=== PATIENT | male | born 1940 | race Two or more races ===

== ENCOUNTER 2016-02-22 13:31 | Inpatient (IN) | payer OTHER, MEDICARE ==
[2016-02-22] VITALS (7 sets, daily range): BP systolic 120–122; BP diastolic 58–62; PULSE 75–83; RESP 19–20; TEMP 97.5–97.8; O2SAT 97–98
[~2016-02-22] VITALS: Ht 167.6 cm; Wt 72.3 kg
[~2016-02-22 13:31] MED LIST: ASPI81 PO; FISH1000 PO; GLUC500C56 PO; TAB-TAB PO; VITA400C28 PO; ZINC220 PO
[2016-02-22 13:55] LABS: AUTOMATED NEUTROPHIL # 6.6 TH/MM3 (1.8-7.7); BASOPHIL % 0.3 % (0.0-2.0); EOSINOPHIL # 0.1 TH/MM3 (0-0.4); EOSINOPHIL % 1.3 % (0.0-4.0); HEMATOCRIT 27.4 % (39.0-51.0); HEMO FLAGS DIFF FINAL; LYMPH % 17.2 % (9.0-44.0); LYMPHOCYTE # 1.5 TH/MM3 (1.0-4.8); MEAN CELL VOLUME 93.4 FL (80.0-100.0); MEAN CORPUSCULAR HEMOGLOBIN 32.6 PG (27.0-34.0); MEAN CORPUSCULAR HGB CONC 34.8 % (32.0-36.0); MONO % 7.3 % (0.0-8.0); NEUT % 73.9 % (16.0-70.0); PLATELET COUNT 228 TH/MM3 (150-450); RED BLOOD COUNT 2.93 MIL/MM3 (4.50-5.90); RED CELL DISTRIBUTION WIDTH 14.4 % (11.6-17.2)
[2016-02-22 13:56] LABS: I-STAT POTASSIUM 3.5 MMOL/L (3.5-4.9)
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
[2016-02-22 14:05] LABS: APTT (PATIENT) 28.4 SEC (24.3-30.1); INTERNATIONAL NORMALIZED RATIO 1.1 RATIO; PROTHROMBIN TIME - PATIENT 12.1 SEC (9.8-11.6)
[2016-02-22] MEDS ORDERED: IOHEXOL 350 MG/ML 10 ML VIAL (for RAD DIAG) IV ONE (14:11)
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
[2016-02-22 14:28] LABS: CKMB 6.1 NG/ML (0.5-3.6)
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
[2016-02-22] MEDS ORDERED: CHLORHEXIDINE GLUCONATE 2 % 1 PACK (2 CLOTHS) TOP PRN (14:30)
[2016-02-22] MEDS ORDERED: SODIUM CHLORIDE 0.9% FLUSH 5 ML FLUSH IV FLUSH PRN (14:30)
[2016-02-22] MEDS ORDERED: HYDROmorphone HCL PF 1 MG/ML VIAL IV PUSH PRN (14:30)
[2016-02-22] MEDS ORDERED: MISCELLANEOUS NURSING INFORMATION XX SCH (14:30)
[2016-02-22] MEDS ORDERED: ACETAMINOPHEN 325 MG TAB PO PRN (14:30)
[2016-02-22] MEDS ORDERED: ONDANSETRON HCL 4 MG/2 ML VIAL IV PRN (14:30)
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
[2016-02-22] MEDS ORDERED: SODIUM CHLOR 0.9% 1000 ML INJ 1,000 ML IV SCH (15:00)
[2016-02-22] MEDS: DOCUSATE SODIUM 100 MG CAP PO SCH ×3 (15:00→21:10)
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
[2016-02-22] MEDS ORDERED: PILL SPLITTER OTHER PRN (15:15)
[2016-02-22] MEDS: RESP: ALBUTEROL 2.5 MG/3 ML NEB (SCH) INH ×2 (15:45→20:23)
[2016-02-22] MEDS: HYDROmorphone HCL PF 1 MG/ML VIAL IV PUSH PRN ×2 (16:10→21:11)
[2016-02-22] MEDS: SODIUM CHLORIDE 0.9% FLUSH 5 ML FLUSH IV FLUSH SCH ×2 (16:18→21:11)
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
[2016-02-22] MEDS: LIDOCAINE HCL 5% PATCH TD SCH (17:10)
[2016-02-22] MEDS: CYCLOBENZAPRINE HCL 10 MG TAB PO SCH ×2 (21:11→21:27)
[2016-02-22 21:54] LABS: BACTERIA, URINE MANY /hpf; BLOOD, URINE MOD (NEG); COMMENT (UR) CULTURE INDICATED; CULTURE IF INDICATED CULTURE INDICATED; GLUCOSE,URINE NEG (NEG); KETONE, URINE NEG (NEG); NITRITE,URINE NEG (NEG); PH, URINE 6.5 (5.0-8.5); URINE COLOR YELLOW (YELLW/STRAW)
[2016-02-23] VITALS (15 sets, daily range): BP systolic 110–131; BP diastolic 53–89; PULSE 76–96; RESP 17–24; TEMP 97.5–99.1; O2SAT 92–99
[2016-02-23 02:17] LABS: AUTOMATED NEUTROPHIL # 8.2 TH/MM3 (1.8-7.7); BASOPHIL % 0.1 % (0.0-2.0); EOSINOPHIL % 0.2 % (0.0-4.0); HEMATOCRIT 28.3 % (39.0-51.0); HEMO FLAGS DIFF FINAL; LYMPH % 8.6 % (9.0-44.0); LYMPHOCYTE # 0.8 TH/MM3 (1.0-4.8); MEAN CELL VOLUME 92.5 FL (80.0-100.0); MEAN CORPUSCULAR HEMOGLOBIN 31.6 PG (27.0-34.0); MEAN CORPUSCULAR HGB CONC 34.2 % (32.0-36.0); MONO % 6.6 % (0.0-8.0); NEUT % 84.5 % (16.0-70.0); PLATELET COUNT 198 TH/MM3 (150-450); RED BLOOD COUNT 3.07 MIL/MM3 (4.50-5.90); RED CELL DISTRIBUTION WIDTH 14.7 % (11.6-17.2); WHITE BLOOD COUNT 9.7 TH/MM3 (4.0-11.0)
[2016-02-23 02:27] LABS: ALT (GPT) 20 U/L (12-78); ANION GAP 12 MEQ/L (5-15); AST (GOT) 47 U/L (15-37); BICARBONATE 25.9 MEQ/L (21.0-32.0); BLOOD UREA NITROGEN 59 MG/DL (7-18); CHLORIDE 99 MEQ/L (98-107); GLOMERULAR FILTRATION RATE 7 ML/MIN (>89); MAGNESIUM 1.7 MG/DL (1.5-2.5); POTASSIUM 3.2 MEQ/L (3.5-5.1); SODIUM (NA) 137 MEQ/L (136-145)
[2016-02-23 02:31] LABS: ALKALINE PHOSPHATASE 54 U/L (45-117); TOTAL BILIRUBIN ADULT 0.2 MG/DL (0.2-1.0)
[2016-02-23] MEDS: RESP: ALBUTEROL 2.5 MG/3 ML NEB (SCH) INH ×4 (03:40→20:26)
[2016-02-23] MEDS: CHLORHEXIDINE GLUCONATE 2 % 1 PACK (2 CLOTHS) TOP SCH (04:00)
[2016-02-23] MEDS: REMOVE OLD PATCH T-DERMAL SCH (04:00)
--- NOTE | 2016-02-23 05:55 | RADRPT ---
EXAM DATE/TIME: 02/23/2016 05:11 [facility] COMPARISON: CHEST SINGLE AP, February 22, 2016, 13:25. INDICATIONS : Evaluate for pulmonary disease. MEDICAL HISTORY : None. SURGICAL HISTORY : None. ENCOUNTER: Subsequent ACUITY: 2 days PAIN SCORE: Non-responsive. LOCATION: Bilateral chest FINDINGS: A single view of the chest demonstrates minimal bibasilar densities without evidence of mass, infiltr ate or effusion. Previous median sternotomy. The cardiomediastinal contours are unremarkable. Osseou s structures are intact. CONCLUSION: Minimal bibasilar densities. Status post CABG. Harjeet Oleary MD on February 23, 2016 at 5:53 Board Certified Radiologist. This report was verified electronically.
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
[2016-02-23] MEDS: CYCLOBENZAPRINE HCL 10 MG TAB PO SCH ×3 (09:03→21:42)
[2016-02-23] MEDS: DOCUSATE SODIUM 100 MG CAP PO SCH ×2 (09:03→20:46)
[2016-02-23] MEDS: SODIUM CHLORIDE 0.9% FLUSH 5 ML FLUSH IV FLUSH SCH ×2 (09:04→20:46)
--- NOTE | 2016-02-23 09:37 | RADRPT ---
EXAM DATE/TIME: 02/23/2016 09:00 [facility] COMPARISON: Non- INDICATIONS : Left knee pain. MEDICAL HISTORY : rib and clavicle fractures SURGICAL HISTORY : Total knee replacement, left. ENCOUNTER: Subsequent ACUITY: 2 days PAIN SCORE: 4/10 LOCATION: Left knee FINDINGS: Two view examination of the left knee demonstrates no evidence of fracture or dislocation. There is a total left knee prosthesis present with no complicating features. Bony mineralization is normal. T he suprapatellar soft tissues have a normal configuration. Surgical clips identified within the poste rior aspect of the knee. CONCLUSION: No acute disease. Teresita Cruz MD on February 23, 2016 at 9:35 Board Certified Radiologist. This report was verified electronically.
--- NOTE | 2016-02-23 10:25 | EKG ---
Date Performed: 02/22/2016 Time Performed: 14:14:04 PTAGE: 75 years EKG: Sinus rhythm RIGHT BUNDLE BRANCH BLOCK LEFT ANTERIOR FASCICULAR BLOCK ABNORMAL ECG INTERPRETATION BASED ON A DEFA ULT AGE OF 40 YEARS NO PREVIOUS TRACING DOCTOR: Edouard Lizarraga Interpretating Date/Time 02/23/2016 10:23:37
[2016-02-23] MEDS: HYDROmorphone HCL PF 1 MG/ML VIAL IV PUSH PRN ×2 (11:23→21:42)
[2016-02-23] MEDS ORDERED: SODIUM CHLORIDE 0.9% FLUSH 5 ML FLUSH IVF PRN (15:15)
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
[2016-02-23] MEDS: POTASSIUM CHLORIDE 20 MEQ CONTROLLED RELEASE TAB PO SCH ×2 (16:35→20:46)
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
[2016-02-23] MEDS: LIDOCAINE HCL 5% PATCH TD SCH (17:08)
[2016-02-23] MEDS: MAGNESIUM HYDROXIDE SUSP 30 ML CUP PO SCH (20:45)
[2016-02-23] MEDS: FAMOTIDINE 20 MG TAB PO SCH (20:46)
[2016-02-24] VITALS (11 sets, daily range): BP systolic 94–117; BP diastolic 55–62; PULSE 82–98; RESP 17–21; TEMP 98.1–98.6; O2SAT 93–97
[2016-02-24] MEDS: REMOVE OLD PATCH T-DERMAL SCH (03:56)
[2016-02-24] MEDS: RESP: ALBUTEROL 2.5 MG/3 ML NEB (SCH) INH ×4 (03:58→20:42)
[2016-02-24 04:38] LABS: AUTOMATED NEUTROPHIL # 8.5 TH/MM3 (1.8-7.7); BASOPHIL % 0.2 % (0.0-2.0); EOSINOPHIL % 0.5 % (0.0-4.0); HEMATOCRIT 30.4 % (39.0-51.0); HEMO FLAGS DIFF FINAL; LYMPH % 6.5 % (9.0-44.0); LYMPHOCYTE # 0.6 TH/MM3 (1.0-4.8); MEAN CELL VOLUME 92.7 FL (80.0-100.0); MEAN CORPUSCULAR HEMOGLOBIN 31.6 PG (27.0-34.0); MEAN CORPUSCULAR HGB CONC 34.1 % (32.0-36.0); MONO % 6.7 % (0.0-8.0); NEUT % 86.1 % (16.0-70.0); PLATELET COUNT 218 TH/MM3 (150-450); RED BLOOD COUNT 3.27 MIL/MM3 (4.50-5.90); RED CELL DISTRIBUTION WIDTH 15.1 % (11.6-17.2); WHITE BLOOD COUNT 9.9 TH/MM3 (4.0-11.0)
[2016-02-24] MEDS: CHLORHEXIDINE GLUCONATE 2 % 1 PACK (2 CLOTHS) TOP SCH (05:00)
[2016-02-24 05:17] LABS: ALKALINE PHOSPHATASE 62 U/L (45-117); ALT (GPT) 20 U/L (12-78); ANION GAP 14 MEQ/L (5-15); AST (GOT) 39 U/L (15-37); BICARBONATE 25.2 MEQ/L (21.0-32.0); BLOOD UREA NITROGEN 56 MG/DL (7-18); CHLORIDE 98 MEQ/L (98-107); GLOMERULAR FILTRATION RATE 7 ML/MIN (>89); MAGNESIUM 1.7 MG/DL (1.5-2.5); POTASSIUM 3.1 MEQ/L (3.5-5.1); SODIUM (NA) 137 MEQ/L (136-145); TOTAL BILIRUBIN ADULT 0.3 MG/DL (0.2-1.0)
--- NOTE | 2016-02-24 06:29 | RADRPT ---
EXAM DATE/TIME: 02/24/2016 05:55 [facility] COMPARISON: CHEST SINGLE AP, February 23, 2016, 5:11. INDICATIONS : Evaluate after respiratory failure. MEDICAL HISTORY : None. SURGICAL HISTORY : None. ENCOUNTER: Subsequent ACUITY: 3 days PAIN SCORE: Non-responsive. LOCATION: Bilateral chest FINDINGS: The cardiac silhouette is normal in transverse diameter. Median sternotomy wires are present. There i s left lower lobe atelectasis versus pneumonia. This is new when compared with the prior exam. No ple ural effusions are identified. CONCLUSION: 1. Cardiomegaly 2. Left lower lobe atelectasis versus pneumonia. This is new when compared with the prior exam. Austin Minor MD on February 24, 2016 at 6:27 Board Certified Radiologist. This report was verified electronically.
[2016-02-24] MEDS: CYCLOBENZAPRINE HCL 10 MG TAB PO SCH ×3 (06:48→21:56)
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
[2016-02-24] MEDS ORDERED: NORC5TAB PO (07:34)
[2016-02-24] MEDS: DOCUSATE SODIUM 100 MG CAP PO SCH ×2 (09:00→21:55)
[2016-02-24] MEDS: POTASSIUM CHLORIDE 20 MEQ CONTROLLED RELEASE TAB PO SCH ×2 (09:00→21:55)
[2016-02-24] MEDS: SODIUM CHLORIDE 0.9% FLUSH 5 ML FLUSH IV FLUSH SCH ×2 (09:22→22:01)
[2016-02-24] MEDS: HYDROmorphone HCL PF 1 MG/ML VIAL IV PUSH PRN ×3 (10:38→21:57)
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
[2016-02-24] MEDS ORDERED: GLUCAGON 1 MG/ML VIAL OTHER PRN (13:00)
[2016-02-24] MEDS ORDERED: POTASSIUM CHLOR 20 MEQ PREMIX 100 ML IV ONE (13:00)
[2016-02-24] MEDS ORDERED: DEXTROSE 50% IN WATER 50 ML VIAL(D50) IV PUSH PRN (13:00)
[2016-02-24] MEDS: LIDOCAINE HCL 5% PATCH TD SCH (16:00)
[2016-02-24] MEDS: INSULIN NovoLIN REGULAR SUPPLEMENTAL SCALE SQ SCH ×2 (16:00→21:56)
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
[2016-02-24] MEDS: MAGNESIUM HYDROXIDE SUSP 30 ML CUP PO SCH (21:55)
[2016-02-24] MEDS: FAMOTIDINE 20 MG TAB PO SCH (21:55)
[2016-02-24] MEDS: HEPARIN SODIUM - SQ 10,000 UNITS/ML VIAL SQ SCH (21:56)
[2016-02-25] VITALS (8 sets, daily range): BP systolic 91–124; BP diastolic 53–66; PULSE 64–102; RESP 16–20; TEMP 96.8–98.1; O2SAT 91–97
[2016-02-25] MEDS: REMOVE OLD PATCH T-DERMAL SCH (04:00)
[2016-02-25] MEDS: CHLORHEXIDINE GLUCONATE 2 % 1 PACK (2 CLOTHS) TOP SCH ×2 (04:00→20:54)
[2016-02-25] MEDS: HEPARIN SODIUM - SQ 10,000 UNITS/ML VIAL SQ SCH ×3 (06:28→20:54)
[2016-02-25] MEDS: CYCLOBENZAPRINE HCL 10 MG TAB PO SCH ×3 (06:28→20:53)
[2016-02-25] MEDS: INSULIN NovoLIN REGULAR SUPPLEMENTAL SCALE SQ SCH ×4 (06:28→20:53)
[2016-02-25] MEDS: HYDROmorphone HCL PF 1 MG/ML VIAL IV PUSH PRN ×2 (07:58→10:48)
[2016-02-25] MEDS: POTASSIUM CHLORIDE 20 MEQ CONTROLLED RELEASE TAB PO SCH ×2 (07:59→20:53)
[2016-02-25] MEDS: SODIUM CHLORIDE 0.9% FLUSH 5 ML FLUSH IV FLUSH SCH ×2 (07:59→20:54)
[2016-02-25] MEDS: DOCUSATE SODIUM 100 MG CAP PO SCH ×2 (07:59→20:53)
[2016-02-25 08:00] LABS: AUTOMATED NEUTROPHIL # 7.9 TH/MM3 (1.8-7.7); BASOPHIL % 0.4 % (0.0-2.0); EOSINOPHIL # 0.2 TH/MM3 (0-0.4); EOSINOPHIL % 1.8 % (0.0-4.0); HEMATOCRIT 30.3 % (39.0-51.0); HEMO FLAGS DIFF FINAL; LYMPH % 8.1 % (9.0-44.0); LYMPHOCYTE # 0.8 TH/MM3 (1.0-4.8); MEAN CELL VOLUME 93.4 FL (80.0-100.0); MEAN CORPUSCULAR HEMOGLOBIN 32.2 PG (27.0-34.0); MEAN CORPUSCULAR HGB CONC 34.5 % (32.0-36.0); MONO % 7.9 % (0.0-8.0); NEUT % 81.8 % (16.0-70.0); PLATELET COUNT 236 TH/MM3 (150-450); RED BLOOD COUNT 3.24 MIL/MM3 (4.50-5.90); RED CELL DISTRIBUTION WIDTH 15.3 % (11.6-17.2); WHITE BLOOD COUNT 9.6 TH/MM3 (4.0-11.0)
[2016-02-25 08:28] LABS: BICARBONATE 28.3 MEQ/L (21.0-32.0); POTASSIUM 3.7 MEQ/L (3.5-5.1)
[2016-02-25] MEDS ORDERED: LACTULOSE SYRUP 20 GM/30 ML CUP PO ONE (09:00)
[2016-02-25] MEDS: RESP: ALBUTEROL 2.5 MG/3 ML NEB (SCH) INH ×3 (09:07→21:16)
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
--- NOTE | 2016-02-25 11:00 | RADRPT ---
EXAM DATE/TIME: 02/25/2016 10:36 [facility] COMPARISON: No previous studies available for comparison. INDICATIONS : Left hand pain and swelling. MEDICAL HISTORY : Arthritis. SURGICAL HISTORY : None. ENCOUNTER: Initial ACUITY: 1 day PAIN SCORE: 8/10 LOCATION: Left Hand. FINDINGS: Four view examination of the left hand demonstrates there is marked osteoarthritis of the radiocarpal column. There is subluxation and arthritic change of the 2nd PIP joint. The middle phalangeal bone is subluxed ulnarly. No acute fracture is identified. CONCLUSION: Scattered areas of osteoarthritis. No acute fracture. Leon Conklin MD on February 25, 2016 at 10:53 Board Certified Radiologist. This report was verified electronically.
[2016-02-25] MEDS: TAMSULOSIN HCL 0.4 MG CAP PO SCH (12:22)
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
[2016-02-25] MEDS: LIDOCAINE HCL 5% PATCH TD SCH (16:26)
[2016-02-25] MEDS: MAGNESIUM HYDROXIDE SUSP 30 ML CUP PO SCH (20:53)
[2016-02-25] MEDS: FAMOTIDINE 20 MG TAB PO SCH (20:53)
[2016-02-26] VITALS (9 sets, daily range): BP systolic 90–110; BP diastolic 50–67; PULSE 81–103; RESP 19–21; TEMP 96.8–98.7; O2SAT 90–98
[2016-02-26] MEDS: REMOVE OLD PATCH T-DERMAL SCH (04:00)
[2016-02-26] MEDS: HEPARIN SODIUM - SQ 10,000 UNITS/ML VIAL SQ SCH ×3 (04:36→19:42)
[2016-02-26] MEDS: RESP: ALBUTEROL 2.5 MG/3 ML NEB (SCH) INH ×3 (04:58→15:19)
[2016-02-26] MEDS: CYCLOBENZAPRINE HCL 10 MG TAB PO SCH ×3 (05:41→19:42)
[2016-02-26] MEDS: INSULIN NovoLIN REGULAR SUPPLEMENTAL SCALE SQ SCH ×4 (05:41→19:43)
[2016-02-26] MEDS: TAMSULOSIN HCL 0.4 MG CAP PO SCH (08:52)
[2016-02-26] MEDS: DOCUSATE SODIUM 100 MG CAP PO SCH ×2 (08:52→19:42)
[2016-02-26] MEDS: SODIUM CHLORIDE 0.9% FLUSH 5 ML FLUSH IV FLUSH SCH ×2 (08:52→19:43)
[2016-02-26] MEDS: POTASSIUM CHLORIDE 20 MEQ CONTROLLED RELEASE TAB PO SCH ×2 (08:52→19:42)
[2016-02-26] MEDS: oxyCODONE/ACETAMINOPHEN 5 MG/325 MG TAB PO PRN ×3 (09:14→16:37)
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
[2016-02-26] MEDS: LIDOCAINE HCL 5% PATCH TD SCH (15:37)
[2016-02-26] MEDS: FAMOTIDINE 20 MG TAB PO SCH (19:42)
[2016-02-26] MEDS: MAGNESIUM HYDROXIDE SUSP 30 ML CUP PO SCH (19:43)
[2016-02-26] MEDS: CHLORHEXIDINE GLUCONATE 2 % 1 PACK (2 CLOTHS) TOP SCH (19:43)
[2016-02-27] VITALS (9 sets, daily range): BP systolic 102–138; BP diastolic 59–75; PULSE 92–110; RESP 16–22; TEMP 96.6–98.7; O2SAT 90–99
[2016-02-27] MEDS: REMOVE OLD PATCH T-DERMAL SCH (03:26)
[2016-02-27] MEDS: CYCLOBENZAPRINE HCL 10 MG TAB PO SCH ×3 (04:59→19:33)
[2016-02-27] MEDS: HEPARIN SODIUM - SQ 10,000 UNITS/ML VIAL SQ SCH ×3 (04:59→19:34)
[2016-02-27] MEDS: INSULIN NovoLIN REGULAR SUPPLEMENTAL SCALE SQ SCH ×4 (04:59→19:33)
[2016-02-27 05:28] LABS: HEMATOCRIT 28.6 % (39.0-51.0); PLATELET COUNT 255 TH/MM3 (150-450); RED BLOOD COUNT 3.04 MIL/MM3 (4.50-5.90); RED CELL DISTRIBUTION WIDTH 15.2 % (11.6-17.2); REVIEW FLAG FINAL; WHITE BLOOD COUNT 10.3 TH/MM3 (4.0-11.0)
[2016-02-27 05:32] LABS: BICARBONATE 27.8 MEQ/L (21.0-32.0); MAGNESIUM 2.3 MG/DL (1.5-2.5); POTASSIUM 4.6 MEQ/L (3.5-5.1)
[2016-02-27] MEDS: POTASSIUM CHLORIDE 20 MEQ CONTROLLED RELEASE TAB PO SCH ×2 (10:07→19:32)
[2016-02-27] MEDS: DOCUSATE SODIUM 100 MG CAP PO SCH ×2 (10:07→19:32)
[2016-02-27] MEDS: SODIUM CHLORIDE 0.9% FLUSH 5 ML FLUSH IV FLUSH SCH ×2 (10:08→19:32)
[2016-02-27] MEDS: TAMSULOSIN HCL 0.4 MG CAP PO SCH (10:08)
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
[2016-02-27] MEDS: oxyCODONE/ACETAMINOPHEN 5 MG/325 MG TAB PO PRN (17:02)
[2016-02-27] MEDS: LIDOCAINE HCL 5% PATCH TD SCH (17:04)
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
[2016-02-27] MEDS: MAGNESIUM HYDROXIDE SUSP 30 ML CUP PO SCH (19:33)
[2016-02-27] MEDS: FAMOTIDINE 20 MG TAB PO SCH (19:33)
[2016-02-27] MEDS: CHLORHEXIDINE GLUCONATE 2 % 1 PACK (2 CLOTHS) TOP SCH (19:33)
[2016-02-28] VITALS: BP 117/60; PULSE 95; RESP 22; TEMP 96.6; O2SAT 95
[2016-02-28] MEDS: REMOVE OLD PATCH T-DERMAL SCH ×2 (02:34→17:13)
[2016-02-28 04:00] VITALS: BP 114/55; PULSE 99; RESP 20; TEMP 98; O2SAT 93
[2016-02-28] MEDS: HEPARIN SODIUM - SQ 10,000 UNITS/ML VIAL SQ SCH ×3 (05:01→21:22)
[2016-02-28] MEDS: CYCLOBENZAPRINE HCL 10 MG TAB PO SCH ×2 (05:02→16:35)
[2016-02-28] MEDS: INSULIN NovoLIN REGULAR SUPPLEMENTAL SCALE SQ SCH ×4 (05:02→21:00)
[2016-02-28 08:00] VITALS: BP 110/58; PULSE 99; RESP 19; TEMP 98.4; O2SAT 95
[2016-02-28] MEDS: SODIUM CHLORIDE 0.9% FLUSH 5 ML FLUSH IV FLUSH SCH ×2 (08:36→21:22)
[2016-02-28] MEDS: DOCUSATE SODIUM 100 MG CAP PO SCH ×2 (08:36→21:21)
[2016-02-28] MEDS: TAMSULOSIN HCL 0.4 MG CAP PO SCH (08:36)
[2016-02-28] MEDS: POTASSIUM CHLORIDE 20 MEQ CONTROLLED RELEASE TAB PO SCH ×2 (08:36→21:21)
[2016-02-28] MEDS ORDERED: TAMS5CAP PO (08:45)
[2016-02-28] MEDS ORDERED: DOCU1CAP39 PO (08:45)
[2016-02-28] MEDS ORDERED: ACET325T PO (08:45)
[2016-02-28] MEDS ORDERED: MILKSUS PO (08:45)
[2016-02-28] MEDS ORDERED: HEPA10003 SQ (08:45)
[2016-02-28] MEDS ORDERED: FAMO20TA2 PO (08:45)
[2016-02-28] MEDS ORDERED: POTA20TA5 PO (08:45)
[2016-02-28] MEDS ORDERED: ONDA4INJ2 IV (08:45)
[2016-02-28] MEDS ORDERED: LIDO5DIS35 TD (08:45)
[2016-02-28] MEDS ORDERED: CYCL1TAB29 PO (08:45)
[2016-02-28] MEDS ORDERED: ASPI1TAB69 PO (09:09)
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
[2016-02-28 12:00] VITALS: BP 113/67; PULSE 89; RESP 18; TEMP 97.9; O2SAT 95
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
[2016-02-28] MEDS: LIDOCAINE HCL 5% PATCH TD SCH (17:13)
[2016-02-28 17:55] VITALS: O2SAT 95
[2016-02-28 20:00] VITALS: BP 123/66; PULSE 108; RESP 24; TEMP 98; O2SAT 95
[2016-02-28] MEDS: MAGNESIUM HYDROXIDE SUSP 30 ML CUP PO SCH (21:21)
[2016-02-28] MEDS: FAMOTIDINE 20 MG TAB PO SCH (21:21)
[2016-02-29] VITALS (9 sets, daily range): BP systolic 86–107; BP diastolic 50–69; PULSE 78–103; RESP 17–24; TEMP 96.6–99.7; O2SAT 93–97
[2016-02-29] MEDS: CYCLOBENZAPRINE HCL 10 MG TAB PO SCH ×3 (00:58→16:16)
[2016-02-29] MEDS: CHLORHEXIDINE GLUCONATE 2 % 1 PACK (2 CLOTHS) TOP SCH (04:00)
[2016-02-29] MEDS: HEPARIN SODIUM - SQ 10,000 UNITS/ML VIAL SQ SCH ×2 (05:08→14:38)
[2016-02-29] MEDS: INSULIN NovoLIN REGULAR SUPPLEMENTAL SCALE SQ SCH ×3 (06:37→16:00)
[2016-02-29] MEDS: TAMSULOSIN HCL 0.4 MG CAP PO SCH (09:48)
[2016-02-29] MEDS: SODIUM CHLORIDE 0.9% FLUSH 5 ML FLUSH IV FLUSH SCH (09:48)
[2016-02-29] MEDS: DOCUSATE SODIUM 100 MG CAP PO SCH (09:48)
[2016-02-29] MEDS: POTASSIUM CHLORIDE 20 MEQ CONTROLLED RELEASE TAB PO SCH ×2 (09:48→21:00)
[2016-02-29] MEDS: oxyCODONE/ACETAMINOPHEN 5 MG/325 MG TAB PO PRN (10:00)
[2016-02-29] MEDS ORDERED: GUAI600T11 PO (10:41)
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
--- NOTE | 2016-02-29 11:55 | RADRPT ---
EXAM DATE/TIME: 02/29/2016 11:40 [place] COMPARISON: CHEST SINGLE AP, February 24, 2016, 5:55. INDICATIONS : Cough, Chest Pain MEDICAL HISTORY : Respiratory Failure. SURGICAL HISTORY : CABG. ENCOUNTER: Subsequent ACUITY: 3 days PAIN SCORE: 2/10 LOCATION: chest FINDINGS: Platelike infiltrates are noted in both lung bases suggestive of atelectasis. The mid and upper lung arias are grossly clear. No new infiltrates are seen compared to the prior study. The heart size is stable. No significant pleural effusions. There are stable left-sided rib fractures. There is evidenc e of previous cardiothoracic surgery. No evidence of pneumothorax. CONCLUSION: Bibasilar platelike infiltrates suggestive of atelectasis. Stanley Ambriz MD on February 29, 2016 at 11:52 Board Certified Radiologist. This report was verified electronically.
[2016-02-29] MEDS: guaiFENesin E.R. 600 MG TAB PO SCH (14:37)
[2016-02-29] MEDS: LIDOCAINE HCL 5% PATCH TD SCH (16:13)
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
[2016-02-29] MEDS: MAGNESIUM HYDROXIDE SUSP 30 ML CUP PO SCH (21:00)
[2016-03-01] VITALS: BP 97/53; PULSE 90; RESP 18; TEMP 96.8; O2SAT 91
[2016-03-01] MEDS: FAMOTIDINE 20 MG TAB PO SCH (00:16)
[2016-03-01] MEDS: guaiFENesin E.R. 600 MG TAB PO SCH ×2 (00:17→08:58)
[2016-03-01] MEDS: DOCUSATE SODIUM 100 MG CAP PO SCH ×2 (00:17→08:56)
[2016-03-01] MEDS: CYCLOBENZAPRINE HCL 10 MG TAB PO SCH ×2 (00:17→06:28)
[2016-03-01] MEDS: SODIUM CHLORIDE 0.9% FLUSH 5 ML FLUSH IV FLUSH SCH ×2 (00:17→08:59)
[2016-03-01] MEDS: HEPARIN SODIUM - SQ 10,000 UNITS/ML VIAL SQ SCH ×3 (00:24→12:08)
[2016-03-01] MEDS: INSULIN NovoLIN REGULAR SUPPLEMENTAL SCALE SQ SCH ×4 (00:24→16:00)
[2016-03-01] MEDS: CHLORHEXIDINE GLUCONATE 2 % 1 PACK (2 CLOTHS) TOP SCH (04:00)
[2016-03-01] MEDS: REMOVE OLD PATCH T-DERMAL SCH (04:00)
[2016-03-01 04:49] LABS: AUTOMATED NEUTROPHIL # 7.1 TH/MM3 (1.8-7.7); BASOPHIL % 0.3 % (0.0-2.0); EOSINOPHIL # 0.3 TH/MM3 (0-0.4); EOSINOPHIL % 3.8 % (0.0-4.0); HEMATOCRIT 29.2 % (39.0-51.0); HEMO FLAGS DIFF FINAL; LYMPH % 10.1 % (9.0-44.0); LYMPHOCYTE # 0.9 TH/MM3 (1.0-4.8); MEAN CELL VOLUME 95.2 FL (80.0-100.0); MEAN CORPUSCULAR HEMOGLOBIN 31.5 PG (27.0-34.0); MEAN CORPUSCULAR HGB CONC 33.1 % (32.0-36.0); MONO % 7.3 % (0.0-8.0); NEUT % 78.5 % (16.0-70.0); PLATELET COUNT 296 TH/MM3 (150-450); RED BLOOD COUNT 3.07 MIL/MM3 (4.50-5.90); RED CELL DISTRIBUTION WIDTH 14.9 % (11.6-17.2)
[2016-03-01 05:15] LABS: ALKALINE PHOSPHATASE 89 U/L (45-117); ALT (GPT) 14 U/L (12-78); ANION GAP 14 MEQ/L (5-15); AST (GOT) 21 U/L (15-37); BICARBONATE 26.1 MEQ/L (21.0-32.0); BLOOD UREA NITROGEN 61 MG/DL (7-18); CHLORIDE 98 MEQ/L (98-107); GLOMERULAR FILTRATION RATE 6 ML/MIN (>89); POTASSIUM 4.1 MEQ/L (3.5-5.1); SODIUM (NA) 138 MEQ/L (136-145); TOTAL BILIRUBIN ADULT 0.4 MG/DL (0.2-1.0)
[2016-03-01 08:00] VITALS: BP 95/55; PULSE 84; RESP 16; TEMP 96.7; O2SAT 96
[2016-03-01 08:55] VITALS: O2SAT 93
[2016-03-01] MEDS: POTASSIUM CHLORIDE 20 MEQ CONTROLLED RELEASE TAB PO SCH (08:55)
[2016-03-01] MEDS: TAMSULOSIN HCL 0.4 MG CAP PO SCH (08:56)
[2016-03-01] MEDS: SEVELAMER CARBONATE 800 MG TAB PO SCH ×3 (08:58→16:03)
[2016-03-01 12:00] VITALS: BP 101/61; PULSE 101; RESP 16; TEMP 98.4; O2SAT 97
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
[2016-03-01] MEDS ORDERED: CYCLOBENZAPRINE HCL 10 MG TAB PO PRN (15:00)
[2016-03-01] MEDS: LIDOCAINE HCL 5% PATCH TD SCH (16:00)
[2016-03-01] MEDS ORDERED: EPOETIN ALFA 20,000 UNITS/ML VIAL SQ ONE (16:00)
[2016-03-01 16:12] VITALS: O2SAT 97
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
== END 2016-03-01 17:10 | DRG 183 ==
LOC: NEPI 13:31 → MERGE 14:01 → NEDA 14:01 → EDBD 14:01 → N03B 14:45 → N07B 02-24 17:22 → N07A 02-27 21:19
PROVIDERS: ADMIT Surgery Trauma Surgery; ATTEND Surgery Trauma Surgery
PROC: 2W39XYZ Immobilization of Left Upper Extremity using Other Device (ICD-10-PCS; principal; 2016-02-22)
PROC: 30233N1 Transfusion of Nonautologous Red Blood Cells into Peripheral Vein, Percutaneous Approach (ICD-10-PCS; 2016-02-22)
PROC: 3E1M39Z Irrigation of Peritoneal Cavity using Dialysate, Percutaneous Approach (ICD-10-PCS; 2016-02-23)
PROC: 0T9B70Z Drainage of Bladder with Drainage Device, Via Natural or Artificial Opening (ICD-10-PCS; 2016-02-27)
DX: S22.43XA Multiple fractures of ribs, bilateral, initial encounter for closed fracture (principal); N18.6 End stage renal disease; S27.322A Contusion of lung, bilateral, initial encounter; I12.0 Hypertensive chronic kidney disease with stage 5 chronic kidney disease or end stage renal disease; I95.9 Hypotension, unspecified; N25.81 Secondary hyperparathyroidism of renal origin; S27.0XXA Traumatic pneumothorax, initial encounter; R54 Age-related physical debility; S42.022A Displaced fracture of shaft of left clavicle, initial encounter for closed fracture; D64.9 Anemia, unspecified; R55 Syncope and collapse; S80.02XA Contusion of left knee, initial encounter; F32.9 Major depressive disorder, single episode, unspecified; I25.10 Atherosclerotic heart disease of native coronary artery without angina pectoris; K21.9 Gastro-esophageal reflux disease without esophagitis; Z96.652 Presence of left artificial knee joint; K57.30 Diverticulosis of large intestine without perforation or abscess without bleeding; M19.90 Unspecified osteoarthritis, unspecified site; R33.9 Retention of urine, unspecified; Z99.2 Dependence on renal dialysis; W06.XXXA Fall from bed, initial encounter; Z95.1 Presence of aortocoronary bypass graft; V49.49XA Driver injured in collision with other motor vehicles in traffic accident, initial encounter; Y92.410 Unspecified street and highway as the place of occurrence of the external cause; Y92.230 Patient room in hospital as the place of occurrence of the external cause
CPT/HCPCS: 36430; 70450; 71010; 71260; 72125; 72128; 72131; 72170; 73130; 73560; 74177; 80048; 80053; 81001; 82435; 82550; 82552; 82565; 82947; 82948; 83735; 84100; 84132; 84295; 84484; 84520; 85025; 85027; 85610; 85730; 86850; 86900; 86901; 86920; 87086; 90935; 93005; 94150; 94640; 94664; 94667; 94668; 96374; 99291; G0390; J1170; J1644; J3010; J3480; J7030; J7613; P9016; Q4081; Q9967

== ENCOUNTER 2016-04-10 07:49 | Emergency (ER) | payer MEDICARE ==
[~2016-04-10] VITALS: Ht 170.2 cm; Wt 71.0 kg
[~2016-04-10 07:49] MED LIST changes: +ACET325T PO; +ASPI1TAB69 PO; -ASPI81 PO; +CYCL1TAB29 PO; +DOCU1CAP39 PO; +FAMO20TA2 PO; +GUAI600T11 PO; +HEPA10003 SQ; +LIDO5DIS35 TD; +MILKSUS PO; +NORC5TAB PO; +ONDA4INJ2 IV; +POTA20TA5 PO; +TAMS5CAP PO
[2016-04-10 07:55] VITALS: BP 150/80; PULSE 79; RESP 16; TEMP 97.9; O2SAT 100
[2016-04-10 07:59] VITALS: BP 152/83; PULSE 82; RESP 16; O2SAT 99
[2016-04-10] MEDS ORDERED: SODIUM CHLORIDE 0.9% FLUSH 5 ML FLUSH IVF PRN (08:00)
[2016-04-10] MEDS ORDERED: MORPHINE SULFATE 4 MG/ML INJ IV ONE (08:00)
[2016-04-10] MEDS ORDERED: ONDANSETRON HCL 4 MG/2 ML VIAL IV PUSH ONE (08:00)
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
[2016-04-10 08:45] LABS: AUTOMATED NEUTROPHIL # 3.8 TH/MM3 (1.8-7.7); BASOPHIL % 0.7 % (0.0-2.0); EOSINOPHIL # 0.2 TH/MM3 (0-0.4); EOSINOPHIL % 3.8 % (0.0-4.0); HEMATOCRIT 30.8 % (39.0-51.0); LYMPH % 23.6 % (9.0-44.0); LYMPHOCYTE # 1.4 TH/MM3 (1.0-4.8); MEAN CELL VOLUME 92.7 FL (80.0-100.0); MEAN CORPUSCULAR HEMOGLOBIN 31.5 PG (27.0-34.0); MONO % 9.7 % (0.0-8.0); NEUT % 62.2 % (16.0-70.0); PLATELET COUNT 347 TH/MM3 (150-450); RED BLOOD COUNT 3.32 MIL/MM3 (4.50-5.90); RED CELL DISTRIBUTION WIDTH 15.6 % (11.6-17.2)
[2016-04-10 08:48] LABS: HEMO FLAGS AUTO DIFF
[2016-04-10 08:50] LABS: APTT (PATIENT) 41.7 SEC (24.3-30.1); INTERNATIONAL NORMALIZED RATIO 1.1 RATIO; PROTHROMBIN TIME - PATIENT 11.8 SEC (9.8-11.6)
--- NOTE | 2016-04-10 08:57 | RADRPT ---
EXAM DATE/TIME: 04/10/2016 08:25 [facility] COMPARISON: PELVIS AP ONLY, February 22, 2016, 13:25. INDICATIONS : Patient fell this morning. MEDICAL HISTORY : Hypertension. SURGICAL HISTORY : CABG. ENCOUNTER: Initial ACUITY: 1 day PAIN SCORE: 0/10 LOCATION: Pelvis FINDINGS: A single frontal view of the pelvis demonstrates no evidence of fracture. The bony pelvic ring is in tact. Bony mineralization is normal. The soft tissues are intact. CONCLUSION: Unremarkable examination of the pelvis. 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 Leon Conklin MD on April 10, 2016 at 8:55 Board Certified Radiologist. This report was verified electronically.
[2016-04-10 09:03] LABS: BICARBONATE 25.4 MEQ/L (21.0-32.0); POTASSIUM 5.2 MEQ/L (3.5-5.1)
[2016-04-10 09:03] LABS: BACTERIA, URINE MOD /hpf; BLOOD, URINE SMALL (NEG); COMMENT (UR) CULTURE INDICATED; CULTURE IF INDICATED CULTURE INDICATED; GLUCOSE,URINE NEG (NEG); KETONE, URINE NEG (NEG); NITRITE,URINE NEG (NEG); PH, URINE 7.5 (5.0-8.5); URINE COLOR YELLOW (YELLW/STRAW)
--- NOTE | 2016-04-10 09:06 | RADRPT ---
EXAM DATE/TIME: 04/10/2016 08:19 [facility] COMPARISON: Prior study 02/29/16. INDICATIONS: Trauma. MEDICAL HISTORY: Hypertension. SURGICAL HISTORY: CABG. ENCOUNTER: Initial ACUITY: 1 day PAIN SCORE: 0/10 LOCATION: Chest FINDINGS: A single view of the chest demonstrates the sternal wires and clips suggest CABG. There is mild inte rstitial prominence. There is no focal infiltrates. No pneumothorax. Bones are unremarkable. CONCLUSION: Mild diffuse interstitial lung disease unchanged since February. Leon Conklin MD on April 10, 2016 at 8:54 Board Certified Radiologist. This report was verified electronically.
[2016-04-10 09:11] VITALS: RESP 18; O2SAT 99
--- NOTE | 2016-04-10 09:13 | RADRPT ---
EXAM DATE/TIME: 04/10/2016 08:57 [facility] COMPARISON: CT BRAIN W/O CONTRAST, February 22, 2016, 13:51. INDICATIONS : Patient fell and hit right forehead RADIATION DOSE: 35.36 CTDIvol (mGy) MEDICAL HISTORY : Carcinoma, bladder. SURGICAL HISTORY : CABG ENCOUNTER: Initial ACUITY: 1 day PAIN SCALE: 3/10 LOCATION: Right cranial TECHNIQUE: Multiple contiguous axial images were obtained of the head. Using automated exposure control and adj ustment of the mA and/or kV according to patient size, radiation dose was kept as low as reasonably a chievable to obtain optimal diagnostic quality images. FINDINGS: CEREBRUM: The ventricles are normal for age. No evidence of midline shift, mass lesion, hemorrhage or acute in farction. No extra-axial fluid collections are seen. POSTERIOR FOSSA: The cerebellum and brainstem are intact. The 4th ventricle is midline. The cerebellopontine angle i s unremarkable. EXTRACRANIAL: The visualized portion of the orbits is intact. Right frontal soft tissue laceration/hematoma. SKULL: The calvaria is intact. No evidence of skull fracture. CONCLUSION: 1. No acute intracranial abnormality. 2. Right frontal scalp hematoma. Harjeet Oleary MD on April 10, 2016 at 9:07 Board Certified Radiologist. This report was verified electronically.
[2016-04-10 09:29] LABS: BANDS 3 % (0-6); EOSINOPHILS 2 % (0-4); PLATELET ESTIMATE SMEAR NORMAL (NORMAL); PLATELET MORPHOLOGY NORMAL (NORMAL); POLYS (SEG NEUTROPHILS) 64 % (16-70); SCAN/DIFF FINAL DIFF MANUAL; WBC DIFF SAMPLE 100
--- NOTE | 2016-04-10 09:29 | RADRPT ---
EXAM DATE/TIME: 04/10/2016 08:57 [facility] COMPARISON: No previous studies available for comparison. INDICATIONS : Patient fell and hit right forehead RADIATION DOSE: 21.14 CTDIvol (mGy) MEDICAL HISTORY : Carcinoma, bladder. SURGICAL HISTORY : CABG ENCOUNTER: Initial ACUITY: 1 day PAIN SCALE: 0/10 LOCATION: neck TECHNIQUE: Volumetric scanning of the cervical spine was performed. Multiplanar reconstructions in the sagittal, coronal and oblique axial planes were performed. Using automated exposure control and adjustment o f the mA and/or kV according to patient size, radiation dose was kept as low as reasonably achievable to obtain optimal diagnostic quality images. FINDINGS: VERTEBRAE: Normal vertebral body height. Advanced multilevel degenerative changes greatest at C4-C6. No fracture s are seen. Multilevel posterior disc osteophyte complexes greatest at C4-5 and C5-6 levels and there is mild canal stenosis. ALIGNMENT: Minimal anterolisthesis C3 on C4 and C6 on C7, stable. Minimal retrolisthesis C4 on C5. Facets are we ll aligned. Arthritic changes and pannus formation at C1-2. CONCLUSION: 1. No fracture seen. 2. Degenerative tierney/retrolisthesis at multiple levels as described above. No significant change. Harjeet Oleary MD on April 10, 2016 at 9:25 Board Certified Radiologist. This report was verified electronically.
[2016-04-10] MEDS ORDERED: cefTRIAXone INJ 1,000 MG in SODIUM CHLORIDE 0.9% INJ 100 ML IV ONE (09:30)
[2016-04-10] MEDS ORDERED: LIDOCAINE 1%/EPINEPHrine 1:100,000 SOLN 20 ML VIAL INFIL ONE (09:45)
--- NOTE | 2016-04-10 10:39 | PD ---
Physical Exam Date Seen by Provider: Apr 10, 2016 Time Seen by Provider: 09:55 Narrative I was asked by Dr. Buenrostro to perform a laceration repair on the right side of the for head. Data Data Last Documented VS Vital Signs Date Time Temp Pulse Resp B/P Pulse Ox O2 Delivery O2 Flow Rate FiO2 04/10/16 11:12 84 16 148/78 98 Room Air 04/10/16 07:55 97.9 Orders Basic Metabolic Panel (Bmp) (04/10/16 07:56) Complete Blood Count With Diff (04/10/16 07:56) Prothrombin Time / Inr (Pt) (04/10/16 07:56) Act Partial Throm Time (Ptt) (04/10/16 07:56) Type And Screen (04/10/16 07:56) Urinalysis - C+S If Indicated (04/10/16 07:56) Chest, Single Ap (04/10/16 07:56) Pelvis, Ap Only (Routine) (04/10/16 07:56) Ct Brain W/O Iv Contrast(Rout) (04/10/16 07:56) Ct Cerv Spine W/O Contrast (04/10/16 07:56) Iv Access Insert/Monitor (04/10/16 07:56) Ecg Monitoring (04/10/16 07:56) Oximetry (04/10/16 07:56) Morphine Inj (Morphine Inj) (04/10/16 08:00) Sodium Chloride 0.9% Flush (Ns Flush) (04/10/16 08:00) Ondansetron Inj (Zofran Inj) (04/10/16 08:00) Urine Culture (04/10/16 08:37) Ceftriaxone Inj (Rocephin Inj) (04/10/16 09:30) Lidocai-Epi 1%-1:100,000 Inj (Xylocaine- (04/10/16 09:45) Labs Laboratory Tests Test 04/10/16 04/10/16 08:30 08:37 White Blood Count 6.0 TH/MM3 Red Blood Count 3.32 MIL/MM3 Hemoglobin 10.5 GM/DL Hematocrit 30.8 % Mean Corpuscular Volume 92.7 FL Mean Corpuscular Hemoglobin 31.5 PG Mean Corpuscular Hemoglobin 34.0 % Concent Red Cell Distribution Width 15.6 % Platelet Count 347 TH/MM3 Mean Platelet Volume 6.4 FL Neutrophils (%) (Auto) 62.2 % Lymphocytes (%) (Auto) 23.6 % Monocytes (%) (Auto) 9.7 % Eosinophils (%) (Auto) 3.8 % Basophils (%) (Auto) 0.7 % Neutrophils # (Auto) 3.8 TH/MM3 Lymphocytes # (Auto) 1.4 TH/MM3 Monocytes # (Auto) 0.6 TH/MM3 Eosinophils # (Auto) 0.2 TH/MM3 Basophils # (Auto) 0.0 TH/MM3 CBC Comment AUTO DIFF Differential Total Cells 100 Counted Neutrophils % (Manual) 64 % Band Neutrophils % 3 % Lymphocytes % 25 % Monocytes % 6 % Eosinophils % 2 % Neutrophils # (Manual) 4.0 TH/MM3 Differential Comment FINAL DIFF MANUAL Platelet Estimate NORMAL Platelet Morphology Comment NORMAL Red Cell Morphology Comment NORMAL Prothrombin Time 11.8 SEC Prothromb Time International 1.1 RATIO Ratio Activated Partial 41.7 SEC Thromboplast Time Sodium Level 140 MEQ/L Potassium Level 5.2 MEQ/L Chloride Level 104 MEQ/L Carbon Dioxide Level 25.4 MEQ/L Anion Gap 11 MEQ/L Blood Urea Nitrogen 46 MG/DL Creatinine 6.71 MG/DL Estimat Glomerular Filtration 8 ML/MIN Rate Random Glucose 87 MG/DL Calcium Level 8.6 MG/DL Blood Type A POSITIVE Antibody Screen NEGATIVE Urine Color YELLOW Urine Turbidity HAZY Urine pH 7.5 Urine Specific [place] 1.010 Urine Protein 30 mg/dL Urine Glucose (UA) NEG mg/dL Urine Ketones NEG mg/dL Urine Occult Blood SMALL Urine Nitrite NEG Urine Bilirubin NEG Urine Urobilinogen LESS THAN 2.0 MG/DL Urine Leukocyte Esterase LARGE Urine RBC 13 /hpf Urine WBC /hpf Urine WBC Clumps OCC Urine Bacteria MOD /hpf Microscopic Urinalysis Comment CULTURE INDICATED MDM Medical Record Reviewed: Yes Supervised Visit with DEBORAH: No Differential Diagnosis Laceration repair, skin abrasion, contusion Narrative Course 75-year-old male had a slip and fall accident sustained a laceration to the right side of his forehead. It measures approximately 2.8 cm. It has clean margins. No evidence of foreign body LACERATION LOCATION: Right side of forehead LENGTH: 2.8 cm NUMBER OF STITCHES/LIU: 5 REPAIR: The area of the laceration was prepped with Betadine and sterilely draped. The laceration was infiltrated with 1% light oh with epi. The wound was copiously irrigated and explored without evidence of foreign body, tendon injury or neurovascular injury. The wound was closed using 5-0 Prolene. This was a single layer repair. A sterile dressing was applied. The patient was advised to keep the dressing clean and dry. Patient tolerated the procedure well. Procedures Procedure Narrative LACERATION LOCATION: Right side of forehead LENGTH: 2.8 cm NUMBER OF STITCHES/LIU: 5 REPAIR: The area of the laceration was prepped with Betadine and sterilely draped. The laceration was infiltrated with 1% light oh with epi. The wound was copiously irrigated and explored without evidence of foreign body, tendon injury or neurovascular injury. The wound was closed using 5-0 Prolene. This was a single layer repair. A sterile dressing was applied. The patient was advised to keep the dressing clean and dry. Patient tolerated the procedure well. will need to be rechecked in 3 days. removal in 5-7 days Diagnosis Primary Impression: Laceration of forehead Qualified Code: S01.81XA - Laceration of forehead, initial encounter Condition: Stable Wendy Huizar Apr 10, 2016 10:39
[2016-04-10 11:12] VITALS: BP 148/78; PULSE 84; RESP 16; O2SAT 98
[2016-04-10 11:15] VITALS: RESP 16
[2016-04-10] MEDS ORDERED: CEPH-460 PO (12:08)
[2016-04-10] MEDS ORDERED: LORA-373 PO (12:23)
[2016-04-10] MEDS ORDERED: MAGN1SOL2 PO (12:23)
[2016-04-10] MEDS ORDERED: VITATAB56 PO (12:23)
[2016-04-10] MEDS ORDERED: FLEEENE3 RECTAL (12:23)
[2016-04-10] MEDS ORDERED: GENT0.1C TOPICAL (12:23)
[2016-04-10] MEDS ORDERED: DULC10SU3 RECTAL (12:23)
[2016-04-10] MEDS ORDERED: GLUC500T4 PO (12:24)
[2016-04-10] MEDS ORDERED: POTA1TAB4 PO (12:32)
[2016-04-10] MEDS ORDERED: MULT-135 PO (12:32)
[2016-04-10] MEDS ORDERED: MIDO5TAB PO (12:32)
[2016-04-10] MEDS ORDERED: OMEG100010 PO (12:32)
[2016-04-10] MEDS ORDERED: REST15CA PO (12:32)
[2016-04-10] MEDS ORDERED: PAXI40TA PO (12:32)
[2016-04-10] MEDS ORDERED: TIZA2TAB PO (12:34)
[2016-04-10] MEDS ORDERED: ZOFR4TAB3 SL (12:34)
[2016-04-10] MEDS ORDERED: ZINC220C3 PO (12:34)
== END 2016-04-10 12:23 ==
LOC: NEPE 07:49
DX: S01.81XA Laceration without foreign body of other part of head, initial encounter (principal); S00.03XA Contusion of scalp, initial encounter; N39.0 Urinary tract infection, site not specified; W18.09XA Striking against other object with subsequent fall, initial encounter
CPT/HCPCS: 12013; 70450; 71010; 72125; 72170; 80048; 81001; 85007; 85027; 85610; 85730; 86850; 86900; 86901; 87086; 96365; 96375; 99284; J0696; J2270; J2405

== ENCOUNTER 2016-04-24 23:16 | Emergency (ER) | payer MEDICARE ==
[~2016-04-24] VITALS: Ht 167.6 cm; Wt 67.0 kg
[~2016-04-24 23:16] MED LIST changes: -ASPI1TAB69 PO; +CEPH-460 PO; -CYCL1TAB29 PO; +DULC10SU3 RECTAL; -FISH1000 PO; +FLEEENE3 RECTAL; +GENT0.1C TOPICAL; -GLUC500C56 PO; +GLUC500T4 PO; -GUAI600T11 PO; +LORA-373 PO; +MAGN1SOL2 PO; +MIDO5TAB PO; +MULT-135 PO; +OMEG100010 PO; -ONDA4INJ2 IV; +PAXI40TA PO; +POTA1TAB4 PO; -POTA20TA5 PO; +REST15CA PO; -TAB-TAB PO; +TIZA2TAB PO; -VITA400C28 PO; +VITATAB56 PO; -ZINC220 PO; +ZINC220C3 PO; +ZOFR4TAB3 SL
[2016-04-24 23:22] VITALS: BP 133/74; PULSE 72; RESP 16; TEMP 98.4; O2SAT 96
[2016-04-24] MEDS ORDERED: LIDOCAINE HCL 1% 50 ML VIAL INFIL ONE (23:45)
[2016-04-25] MEDS ORDERED: GLUCTAB32 PO (00:02)
--- NOTE | 2016-04-25 00:07 | PD ---
HPI Chief Complaint: Laceration/Skin Injury Time Seen by Provider: 23:44 Travel History International Travel<30 days: No Contact w/Intl Traveler<30days: No Traveled to known affect area: No History of Present Illness HPI 75yo M with PMH of peritoneal dialysis, left lower ext DVT on heparin, left clavicular fracture presents to the ED from [facility] and rehab s/p fall today. Pt states he was trying to get to wheel chair and had one hand on wheelchair and one hand on bed and his hand slipped and he fell forward, hitting his forehead. Denies any LOC. Pt is complaining of pain in his head where he has a laceration. Denies any dizziness, chest pain, sob, n/v, abdominal pain, focal weakness or numbness. Pt was just here for another mechanical fall when he tripped over his peritoneal dialysis catheter on and had another laceration at that time. Pt's PMD is Dr. Seals. [facility] Past Medical History Cancer: Yes (bladder) Diminished Hearing: No Tetanus Vaccination: < 5 Years Influenza Vaccination: Yes Past Surgical History Cardiac Surgery: Yes (cabg) Coronary Artery Bypass Graft: Yes (6 vessel) Tonsillectomy: Yes Social History Alcohol Use: No Tobacco Use: No Substance Use: No Allergies-Medications (Allergen,Severity, Reaction): Coded Allergies: No Known Allergies (Verified , 04/24/16) Uncoded Allergies: NKDA (Allergy, Unknown, 10/20/02) Reported Meds & Prescriptions Reported Meds & Active Scripts Active Acetaminophen 325 Mg Tab 325 Mg PO Q4-6H PRN Flomax (Tamsulosin HCl) 0.4 Mg Cap 0.4 Mg PO DAILY 30 Days Milk of Magnesia Liq (Magnesium Hydroxide) 400 Mg/5 Ml Susp 30 Ml PO HS 30 Days Heparin Sodium (Heparin Sodium (Porcine)) 10,000 Unit/Ml Inj 5,000 Units SQ Q8HR 30 Days Famotidine 20 Mg Tab 20 Mg PO HS 30 Days Dok (Docusate Sodium) 100 Mg Cap 100 Mg PO BID 30 Days Acetaminophen 325 Mg Tab 650 Mg PO Q6H PRN 30 Days [place] (Hydrocodone-Acetaminophen) 5-325 mg Tab 1 Tab PO Q4H PRN Reported Ondansetron (Ondansetron HCl) 4 Mg Tab 4 Mg PO Q6HR PRN Zinc Sulfate 220 Mg Cap 220 Mg PO DAILY Tizanidine (Tizanidine HCl) 2 Mg Tab 2 Mg PO TID Restoril (Temazepam) 15 Mg Cap 15 Mg PO HS PRN K-Tab (Potassium Chloride) 20 Meq Tab 20 Meq PO DAILY Paxil (Paroxetine HCl) 40 Mg Tab 40 Mg PO DAILY [place] 3 1000 mg ([place]-3 Fatty Acids) 1 Cap Cap 1,000 Mg PO DAILY Multi Vitamin (Multiple Vitamin) 1 Tab Tab 1 Tab PO DAILY Midodrine 5 Mg Tab 5 Mg PO BID Glucosamine-Chondroitin 500-400 Mg Tab 1 Tab PO DAILY Gentamicin Topical 0.1% Cream 1 Applic TOPICAL DAILY IN THE MORNING Apply to exit site related to dependence of renal dialysis Fleet Enema Rectal (Sodium Phosphates Rectal) 7-19 Gm/118 Ml Enem 118 Ml RECTAL DAILY PRN Dulcolax Supp (Bisacodyl) 10 Mg Supp 10 Mg RECTAL DAILY IN THE MORNING PRN Citrate of Magnesia Liq (Magnesium Citrate) 300 Ml Liq 296 Ml PO IN THE MORNING PRN Vitamin D-400 (Cholecalciferol) 400 Unit Tab 400 Units PO DAILY Lorazepam 0.5 Mg Tab 0.5 Mg PO Q6H PRN Review of Systems Except as stated in HPI: all other systems reviewed are Neg Physical Exam Narrative GENERAL: 75yo M not in distress. SKIN: Warm and dry. HEAD: +3cm laceration in mid forehead. +More superficial stellate laceration above it. Old laceration repair to the right of it. EYES: Pupils equal and round at 3mm bilaterally. EOMI. No scleral icterus. No injection or drainage. ENT: No nasal bleeding or discharge. Mucous membranes pink and moist. NECK: No midline ttp cervical spine. FROM cervical spine. CARDIOVASCULAR: Regular rate and rhythm. No murmur appreciated. RESPIRATORY: No accessory muscle use. Clear to auscultation. Breath sounds equal bilaterally. GASTROINTESTINAL: Abdomen soft, non-tender, nondistended. No rebound tenderness or guarding. MUSCULOSKELETAL: No obvious deformities. No clubbing. No cyanosis. No edema. NEUROLOGICAL: Awake and alert. No obvious cranial nerve deficits. Motor grossly within normal limits. Normal speech. PSYCHIATRIC: Appropriate mood and affect; insight and judgment normal. Data Data Last Documented VS Vital Signs Date Time Temp Pulse Resp B/P Pulse Ox O2 Delivery O2 Flow Rate FiO2 04/25/16 01:31 76 16 126/71 98 Room Air 04/24/16 23:[address] Brain W/O Iv Contrast(Rout) (04/24/16 ) Complete Blood Count With Diff (04/24/16 23:44) Basic Metabolic Panel (Bmp) (04/24/16 23:44) Act Partial Throm Time (Ptt) (04/24/16 23:44) Prothrombin Time / Inr (Pt) (04/24/16 23:44) Type And Screen (04/24/16 23:44) Lidocaine 1% Inj (50 Ml) (Xylocaine 1% I (04/24/16 23:45) Electrocardiogram (04/24/16 ) Acetaminophen (Tylenol) (04/25/16 01:15) Labs Laboratory Tests Test 04/25/16 00:00 White Blood Count 9.2 TH/MM3 Red Blood Count 3.07 MIL/MM3 Hemoglobin 9.6 GM/DL Hematocrit 28.8 % Mean Corpuscular Volume 93.8 FL Mean Corpuscular Hemoglobin 31.2 PG Mean Corpuscular Hemoglobin 33.2 % Concent Red Cell Distribution Width 15.5 % Platelet Count 343 TH/MM3 Mean Platelet Volume 6.7 FL Neutrophils (%) (Auto) 73.6 % Lymphocytes (%) (Auto) 14.1 % Monocytes (%) (Auto) 7.6 % Eosinophils (%) (Auto) 4.2 % Basophils (%) (Auto) 0.5 % Neutrophils # (Auto) 6.8 TH/MM3 Lymphocytes # (Auto) 1.3 TH/MM3 Monocytes # (Auto) 0.7 TH/MM3 Eosinophils # (Auto) 0.4 TH/MM3 Basophils # (Auto) 0.0 TH/MM3 CBC Comment DIFF FINAL Differential Comment Prothrombin Time 11.6 SEC Prothromb Time International 1.0 RATIO Ratio Activated Partial 37.8 SEC Thromboplast Time Sodium Level 139 MEQ/L Potassium Level 4.7 MEQ/L Chloride Level 102 MEQ/L Carbon Dioxide Level 22.9 MEQ/L Anion Gap 14 MEQ/L Blood Urea Nitrogen 47 MG/DL Creatinine 6.28 MG/DL Estimat Glomerular Filtration 9 ML/MIN Rate Random Glucose 134 MG/DL Calcium Level 8.7 MG/DL Blood Type A POSITIVE Antibody Screen NEGATIVE MDM Medical Decision Making Medical Screen Exam Complete: Yes Emergency Medical Condition: Yes Interpretation(s) EKG; NSR 95bpm. LAD. No ST segment elevation or depression. Differential Diagnosis ICH vs. forehead laceration vs. fracture Narrative Course 75yo M with forehead laceration s/p mechanical fall. Labs reviewed, no leukocytosis. H/H stable at 9.6/28.8 at baseline. K: 4.7. BUN/creatinine at baseline. Laceration repair by PA. Tetanus up to date. Sign out to Dr. Scott to follow up official CT brain results. Diagnosis Primary Impression: Head trauma Qualified Code: S09.90XA - Head trauma, initial encounter Patient Instructions: General Instructions Departure Forms: Tests/Procedures Additional Instructions: Please follow up with your PMD in 5 days for suture removal. Return to the ED if symptoms worsen. Med/Other Pt SpecificInfo: Prescription(s) given Scripts Acetaminophen 325 Mg [id number] Mg PO Q4-6H PRN (PAIN SCALE 1 TO 4) #20 TAB Ref 0 Prov:Deloris Pop DO 04/25/16 Disposition: 01 DISCHARGE HOME Condition: Stable Deloris Pop DO Apr 25, 2016 00:07
[2016-04-25] MEDS ORDERED: ONDA1TAB16 PO (00:15)
[2016-04-25 00:22] LABS: AUTOMATED NEUTROPHIL # 6.8 TH/MM3 (1.8-7.7); BASOPHIL % 0.5 % (0.0-2.0); EOSINOPHIL # 0.4 TH/MM3 (0-0.4); EOSINOPHIL % 4.2 % (0.0-4.0); HEMATOCRIT 28.8 % (39.0-51.0); HEMO FLAGS DIFF FINAL; LYMPH % 14.1 % (9.0-44.0); LYMPHOCYTE # 1.3 TH/MM3 (1.0-4.8); MEAN CELL VOLUME 93.8 FL (80.0-100.0); MEAN CORPUSCULAR HEMOGLOBIN 31.2 PG (27.0-34.0); MEAN CORPUSCULAR HGB CONC 33.2 % (32.0-36.0); MONO % 7.6 % (0.0-8.0); NEUT % 73.6 % (16.0-70.0); PLATELET COUNT 343 TH/MM3 (150-450); RED BLOOD COUNT 3.07 MIL/MM3 (4.50-5.90); RED CELL DISTRIBUTION WIDTH 15.5 % (11.6-17.2); WHITE BLOOD COUNT 9.2 TH/MM3 (4.0-11.0)
[2016-04-25 00:34] LABS: BICARBONATE 22.9 MEQ/L (21.0-32.0); POTASSIUM 4.7 MEQ/L (3.5-5.1)
[2016-04-25 00:48] LABS: APTT (PATIENT) 37.8 SEC (24.3-30.1); PROTHROMBIN TIME - PATIENT 11.6 SEC (9.8-11.6)
[2016-04-25] MEDS ORDERED: ACET325T PO (01:00)
--- NOTE | 2016-04-25 01:11 | PD ---
Physical Exam Narrative I was asked by Dr. Pop to repair patient's forehead laceration. Please see her documentation for full H&P. Data Data Last Documented VS Vital Signs Date Time Temp Pulse Resp B/P Pulse Ox O2 Delivery O2 Flow Rate FiO2 04/24/16 23:25 16 04/24/16 23:22 98.4 72 133/[address] Brain W/O Iv Contrast(Rout) (04/24/16 ) Complete Blood Count With Diff (04/24/16 23:44) Basic Metabolic Panel (Bmp) (04/24/16 23:44) Act Partial Throm Time (Ptt) (04/24/16 23:44) Prothrombin Time / Inr (Pt) (04/24/16 23:44) Type And Screen (04/24/16 23:44) Lidocaine 1% Inj (50 Ml) (Xylocaine 1% I (04/24/16 23:45) Electrocardiogram (04/24/16 ) Labs Laboratory Tests Test 04/25/16 00:00 White Blood Count 9.2 TH/MM3 Red Blood Count 3.07 MIL/MM3 Hemoglobin 9.6 GM/DL Hematocrit 28.8 % Mean Corpuscular Volume 93.8 FL Mean Corpuscular Hemoglobin 31.2 PG Mean Corpuscular Hemoglobin 33.2 % Concent Red Cell Distribution Width 15.5 % Platelet Count 343 TH/MM3 Mean Platelet Volume 6.7 FL Neutrophils (%) (Auto) 73.6 % Lymphocytes (%) (Auto) 14.1 % Monocytes (%) (Auto) 7.6 % Eosinophils (%) (Auto) 4.2 % Basophils (%) (Auto) 0.5 % Neutrophils # (Auto) 6.8 TH/MM3 Lymphocytes # (Auto) 1.3 TH/MM3 Monocytes # (Auto) 0.7 TH/MM3 Eosinophils # (Auto) 0.4 TH/MM3 Basophils # (Auto) 0.0 TH/MM3 CBC Comment DIFF FINAL Differential Comment Prothrombin Time 11.6 SEC Prothromb Time International 1.0 RATIO Ratio Activated Partial 37.8 SEC Thromboplast Time Sodium Level 139 MEQ/L Potassium Level 4.7 MEQ/L Chloride Level 102 MEQ/L Carbon Dioxide Level 22.9 MEQ/L Anion Gap 14 MEQ/L Blood Urea Nitrogen 47 MG/DL Creatinine 6.28 MG/DL Estimat Glomerular Filtration 9 ML/MIN Rate Random Glucose 134 MG/DL Calcium Level 8.7 MG/DL Blood Type A POSITIVE Antibody Screen NEGATIVE MDM Supervised Visit with DEBORAH: No Procedures Procedure Narrative LACERATION REPAIR LOCATION: Forehead LENGTH: Approximately 3 cm NUMBER OF STITCHES/LIU: 6 simple interrupted REPAIR: Verbal consent was obtained. The area of the laceration was cleaned and prepped. The laceration was infiltrated with lidocaine without epi. The wound was copiously irrigated and explored without evidence of foreign body, bony involvement, ligament injury, tendon injury, or neurovascular injury. The wound was closed using 5-0 Vicryl. This was a single layer repair. A sterile dressing was applied by nurse. The patient was advised to keep the affected area as clean and dry as possible using soap and water. There were no complications. Patient tolerated the procedure well. Diagnosis Primary Impression: Head trauma Qualified Code: S09.90XA - Head trauma, initial encounter Patient Instructions: General Instructions Departure Forms: Tests/Procedures Additional Instruction: Please follow up with your PMD in 5 days for suture removal. Return to the ED if symptoms worsen. Scripts Acetaminophen 325 Mg [id number] Mg PO Q4-6H PRN (PAIN SCALE 1 TO 4) #20 TAB Ref 0 Prov:Deloris Pop DO 04/25/16 Disposition: 01 DISCHARGE HOME Condition: Stable Jose Burgos Apr 25, 2016 01:11
[2016-04-25] MEDS ORDERED: ACETAMINOPHEN 500 MG CPLT PO ONE (01:15)
--- NOTE | 2016-04-25 01:30 | RADRPT ---
EXAM DATE/TIME: 04/25/2016 00:36 [facility] COMPARISON: CT BRAIN W/O CONTRAST, April 10, 2016, 8:57. INDICATIONS : Fall, laceration to forehead. RADIATION DOSE: 47.11 CTDIvol (mGy) MEDICAL HISTORY : Carcinoma, bladder. SURGICAL HISTORY : CABG ENCOUNTER: Initial ACUITY: 1 day PAIN SCALE: 6/10 LOCATION: cranial TECHNIQUE: Multiple contiguous axial images were obtained of the head. Using automated exposure control and adj ustment of the mA and/or kV according to patient size, radiation dose was kept as low as reasonably a chievable to obtain optimal diagnostic quality images. FINDINGS: CEREBRUM: The ventricles are normal for age. No evidence of midline shift, mass lesion, hemorrhage or acute in farction. No extra-axial fluid collections are seen. POSTERIOR FOSSA: The cerebellum and brainstem are intact. The 4th ventricle is midline. The cerebellopontine angle i s unremarkable. EXTRACRANIAL: The visualized portion of the orbits is intact. SKULL: Anterior frontal scalp hematoma. No evidence of fracture. CONCLUSION: No acute intracranial findings. Moses Llamas MD on April 25, 2016 at 1:26 Board Certified Radiologist. This report was verified electronically.
[2016-04-25 01:31] VITALS: BP 126/71; PULSE 76; RESP 16; O2SAT 98
--- NOTE | 2016-04-25 04:43 | PD ---
Physical Exam Date Seen by Provider: Apr 25, 2016 Data Data Last Documented VS Vital Signs Date Time Temp Pulse Resp B/P Pulse Ox O2 Delivery O2 Flow Rate FiO2 04/25/16 01:31 76 16 126/71 98 Room Air 04/24/16 23:[address] Brain W/O Iv Contrast(Rout) (04/24/16 ) Complete Blood Count With Diff (04/24/16 23:44) Basic Metabolic Panel (Bmp) (04/24/16 23:44) Act Partial Throm Time (Ptt) (04/24/16 23:44) Prothrombin Time / Inr (Pt) (04/24/16 23:44) Type And Screen (04/24/16 23:44) Lidocaine 1% Inj (50 Ml) (Xylocaine 1% I (04/24/16 23:45) Electrocardiogram (04/24/16 ) Acetaminophen (Tylenol) (04/25/16 01:15) Labs Laboratory Tests Test 04/25/16 00:00 White Blood Count 9.2 TH/MM3 Red Blood Count 3.07 MIL/MM3 Hemoglobin 9.6 GM/DL Hematocrit 28.8 % Mean Corpuscular Volume 93.8 FL Mean Corpuscular Hemoglobin 31.2 PG Mean Corpuscular Hemoglobin 33.2 % Concent Red Cell Distribution Width 15.5 % Platelet Count 343 TH/MM3 Mean Platelet Volume 6.7 FL Neutrophils (%) (Auto) 73.6 % Lymphocytes (%) (Auto) 14.1 % Monocytes (%) (Auto) 7.6 % Eosinophils (%) (Auto) 4.2 % Basophils (%) (Auto) 0.5 % Neutrophils # (Auto) 6.8 TH/MM3 Lymphocytes # (Auto) 1.3 TH/MM3 Monocytes # (Auto) 0.7 TH/MM3 Eosinophils # (Auto) 0.4 TH/MM3 Basophils # (Auto) 0.0 TH/MM3 CBC Comment DIFF FINAL Differential Comment Prothrombin Time 11.6 SEC Prothromb Time International 1.0 RATIO Ratio Activated Partial 37.8 SEC Thromboplast Time Sodium Level 139 MEQ/L Potassium Level 4.7 MEQ/L Chloride Level 102 MEQ/L Carbon Dioxide Level 22.9 MEQ/L Anion Gap 14 MEQ/L Blood Urea Nitrogen 47 MG/DL Creatinine 6.28 MG/DL Estimat Glomerular Filtration 9 ML/MIN Rate Random Glucose 134 MG/DL Calcium Level 8.7 MG/DL Blood Type A POSITIVE Antibody Screen NEGATIVE [facility] Medical Record Reviewed: Yes Supervised Visit with DEBORAH: No Interpretation(s) Vital Signs Date Time Temp Pulse Resp B/P Pulse Ox O2 Delivery O2 Flow Rate FiO2 04/25/16 01:31 76 16 126/71 98 Room Air 04/24/16 23:25 16 04/24/16 23:22 98.4 72 16 133/74 96 CBC & BMP Diagram 04/25/16 00:[address] 04/24/16 0000 Signed Impressions: Service Date/Time: Monday, April 25, 2016 00:36 - CONCLUSION: No acute intracranial findings. Moses Llamas MD Narrative Course Please see previous providers chart for full workup Patient was signed out to me by Dr. Pop, patient pending CT of the head. It CT of the head is negative, patient is safe to be discharged home with outpatient follow-up. Patient is a 75-year-old male with history of her to dialysis, DVT on heparin, presents to emergency room after he fell today. Patient reports that he was trying to get into his wheelchair and reports that he left and fell forward hitting his forehead. Patient denies any loss of consciousness, patient with no complaints at this time. Patient with no chest pain or shortness of breath, denies any pain to the back of his neck. Patient had laceration repair by Jose VO I did review all labs and all studies with patient detail. Patient request to be sent back to his rehabilitation facility as he feels "perfectly fine." Discussed need for follow-up in 48 hours for wound check. Signs and symptoms of when to return to the emergency room was reviewed with patient in detail. Diagnosis Primary Impression: Head trauma Qualified Code: S09.90XA - Head trauma, initial encounter Additional Impression: Laceration of face Qualified Code: S01.81XA - Laceration of face, initial encounter Patient Instructions: General Instructions Departure Forms: Tests/Procedures Additional Instruction: Please follow up with your PMD in 5 days for suture removal. Return to the ED if symptoms worsen. Please call your primary care doctor for earliest follow-up Please return to the emergency room or to your primary care doctor's office in 48 hours for wound check, return to emergency room if he develops any signs of infection or drainage from wound Scripts Acetaminophen 325 Mg [id number] Mg PO Q4-6H PRN (PAIN SCALE 1 TO 4) #20 TAB Ref 0 Prov:Deloris Pop 04/25/16 Disposition: 01 DISCHARGE HOME Condition: Stable Becki Scott DO Apr 25, 2016 04:43
--- NOTE | 2016-04-25 19:53 | EKG ---
Date Performed: 04/25/2016 Time Performed: 01:18:15 PTAGE: 75 years EKG: Sinus rhythm NORMAL ECG PREVIOUS TRACING : 01/05/2010 12.26 Compared to prior tracing no significant change DOCTOR: Jacqueline Powell Interpretating Date/Time 04/25/2016 19:52:37
== END 2016-04-25 07:58 | disposition home or self-care (01) ==
LOC: NEPA 23:16 → NEPE 04-25 07:58
DX: S09.90XA Unspecified injury of head, initial encounter (principal); W01.10XA Fall on same level from slipping, tripping and stumbling with subsequent striking against unspecified object, initial encounter; Y92.193 Bedroom in other specified residential institution as the place of occurrence of the external cause; Z95.1 Presence of aortocoronary bypass graft
CPT/HCPCS: 12013; 70450; 80048; 85025; 85610; 85730; 86850; 86900; 86901; 93005

== ENCOUNTER 2016-06-22 16:51 | Emergency (ER) | payer MEDICARE ==
[~2016-06-22] VITALS: Ht 175.3 cm; Wt 66.2 kg
[~2016-06-22 16:51] MED LIST changes: -CEPH-460 PO; -LIDO5DIS35 TD; +ONDA1TAB16 PO; -ZOFR4TAB3 SL
[2016-06-22 17:11] VITALS: BP 129/66; PULSE 78; RESP 16; TEMP 98; O2SAT 100
[2016-06-22] MEDS ORDERED: CALC667T PO (18:28)
[2016-06-22] MEDS ORDERED: PANT40TA3 PO (18:28)
[2016-06-22] MEDS ORDERED: ASPI81TA11 PO (18:28)
[2016-06-22] MEDS ORDERED: CALC0.25 PO (18:28)
[2016-06-22] MEDS ORDERED: LIQUID PROTEIN PO (18:28)
[2016-06-22] MEDS ORDERED: VITA500T PO (18:28)
[2016-06-22] MEDS ORDERED: FOSI10TA PO (18:28)
[2016-06-22] MEDS ORDERED: AMBI5TAB PO (18:28)
[2016-06-22] MEDS ORDERED: LOVA40TA PO (18:28)
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
--- NOTE | 2016-06-22 19:15 | RADHPO ---
EXAM DATE/TIME: 06/22/2016 18:48 [facility] COMPARISON: HAND LEFT COMPLETE ([id number]), February 25, 2016, 10:36. INDICATIONS : Entire left hand pain with swelling. Patient heard a "pop" after rolling in bed. MEDICAL HISTORY : Arthritis. SURGICAL HISTORY : None. ENCOUNTER: Initial ACUITY: 2 days PAIN SCORE: 6/10 LOCATION: Left upper extremity FINDINGS: Severe arthritic changes are basically stable, most significantly involving the index finger PIP join t where significant ulnar subluxation of the middle phalanx is present relative to the proximal phala nx. Slightly less severe changes in the thumb carpal joint region. There is no evidence of fracture o r other acute process. CONCLUSION: Stable severe arthritic changes. Mario Rodriguez MD on June 22, 2016 at 19:11 Board Certified Radiologist. This report was verified electronically.
[2016-06-22] MEDS ORDERED: predniSONE 20 MG TAB PO ONE (19:45)
[2016-06-22] MEDS ORDERED: PRED20 PO (19:58)
== END 2016-06-22 20:25 | disposition home or self-care (01) ==
LOC: PHEFT 16:51
DX: M18.9 Osteoarthritis of first carpometacarpal joint, unspecified (principal); M25.569 Pain in unspecified knee; G89.29 Other chronic pain; I10 Essential (primary) hypertension; E78.00 Pure hypercholesterolemia, unspecified; Z99.2 Dependence on renal dialysis; Z95.1 Presence of aortocoronary bypass graft; Z79.01 Long term (current) use of anticoagulants; Z87.39 Personal history of other diseases of the musculoskeletal system and connective tissue; Z85.528 Personal history of other malignant neoplasm of kidney; Z87.19 Personal history of other diseases of the digestive system; Z87.448 Personal history of other diseases of urinary system
CPT/HCPCS: 73130; 99283; J7512; L3808

== ENCOUNTER 2016-06-23 17:14 | Observation (INO) | payer MEDICARE ==
[~2016-06-23] VITALS: Ht 167.6 cm; Wt 66.4 kg
[~2016-06-23 17:14] MED LIST changes: -ACET325T PO; +AMBI5TAB PO; +ASPI81TA11 PO; +CALC0.25 PO; +CALC667T PO; -DOCU1CAP39 PO; -DULC10SU3 RECTAL; -FAMO20TA2 PO; -FLEEENE3 RECTAL; +FOSI10TA PO; -GENT0.1C TOPICAL; -GLUC500T4 PO; -HEPA10003 SQ; +LIQUID PROTEIN PO; -LORA-373 PO; +LOVA40TA PO; -MAGN1SOL2 PO; -MIDO5TAB PO; -MILKSUS PO; -MULT-135 PO; -NORC5TAB PO; -OMEG100010 PO; -ONDA1TAB16 PO; +PANT40TA3 PO; -PAXI40TA PO; -POTA1TAB4 PO; +PRED20 PO; -REST15CA PO; -TAMS5CAP PO; -TIZA2TAB PO; +VITA500T PO; -VITATAB56 PO; -ZINC220C3 PO
[2016-06-23 17:18] VITALS: BP 166/90; PULSE 80; RESP 16; TEMP 97.9; O2SAT 99
--- NOTE | 2016-06-23 17:45 | PD ---
HPI Chief Complaint: Complaint Time Seen by Provider: 17:23 Travel History International Travel<30 days: No Contact w/Intl Traveler<30days: No Traveled to known affect area: No History of Present Illness HPI The patient 75 years old. He has history of end-stage kidney disease and has been undergoing peritoneal dialysis at home. A few days ago he hurt his left hand that has been unable to perform the peritoneal dialysis at home for the past 3 days. He arrives stating that he needs to undergo vas catheter placement for dialysis. He reports that he is very hungry. No other specific complaint is offered at the time of interview. PFSH Past Medical History Hx Anticoagulant Therapy: Yes Cancer: Yes (bladder) High Cholesterol: Yes Dialysis: Yes (PERITONEAL) Diminished Hearing: No GERD: Yes Genitourinary: Yes Hypertension: Yes Influenza Vaccination: Yes Past Surgical History Cardiac Surgery: Yes (cabg) Coronary Artery Bypass Graft: Yes (6 vessel) Genitourinary Surgery: Yes (peritoneal dialysis) Tonsillectomy: Yes Social History Alcohol Use: No Tobacco Use: No Substance Use: No Allergies-Medications (Allergen,Severity, Reaction): Coded Allergies: No Known Allergies (Verified , 06/23/16) Uncoded Allergies: NKDA (Allergy, Unknown, 10/20/02) Reported Meds & Prescriptions Reported Meds & Active Scripts Active Prednisone 20 Mg Tab 20 Mg PO BID Reported [Liquid Protein] 5 Mg PO MWF Pantoprazole (Pantoprazole Sodium) 40 Mg Tab 40 Mg PO DAILY Ambien (Zolpidem Tartrate) 5 Mg Tab 5 Mg PO HS PRN Aspirin EC (Aspirin) 81 Mg Tabdr 81 Mg PO DAILY Vitamin C (Ascorbic Acid) 500 Mg Tab 500 Mg PO DAILY Calcium Acetate (Phosphate Binder) 667 Mg Tab 667 Mg PO TID Calcitriol 0.25 Mcg Cap 0.25 Mcg PO DAILY Lovastatin 40 Mg Tab 40 Mg PO DAILY Fosinopril (Fosinopril Sodium) 10 Mg Tab 10 Mg PO TID Review of Systems Except as stated in HPI: all other systems reviewed are Neg Physical Exam Narrative GENERAL: 75-year-old male well-nourished well-developed pleasant SKIN: Warm and dry. HEAD: Atraumatic. Normocephalic. EYES: Pupils equal and round. No scleral icterus. No injection or drainage. ENT: No nasal bleeding or discharge. Mucous membranes pink and moist. NECK: Trachea midline. No JVD. CARDIOVASCULAR: Regular rate and rhythm. RESPIRATORY: No accessory muscle use. Clear to auscultation. Breath sounds equal bilaterally. GASTROINTESTINAL: Soft. There is a peritoneal dialysis catheter in the right abdomen. Site of insertion appears clean. MUSCULOSKELETAL: Extremities without clubbing, cyanosis, or edema. No obvious deformities. NEUROLOGICAL: Awake and alert. No obvious cranial nerve deficits. Motor grossly within normal limits. Five out of 5 muscle strength in the arms and legs. Normal speech. PSYCHIATRIC: Appropriate mood and affect; insight and judgment normal. Data Data Last Documented VS Vital Signs Date Time Temp Pulse Resp B/P Pulse Ox O2 Delivery O2 Flow Rate FiO2 06/23/16 17:18 97.9 80 16 166/90 99 VS reviewed Orders Electrocardiogram (06/23/16 17:45) Complete Blood Count With Diff (06/23/16 17:45) Comprehensive Metabolic Panel (06/23/16 17:45) Magnesium (Mg) (06/23/16 17:45) Phosphorus (Po4) (06/23/16 17:45) Iv Access Insert/Monitor (06/23/16 17:45) Ecg Monitoring (06/23/16 17:45) Oximetry (06/23/16 17:45) Labs Laboratory Tests Test 06/23/16 17:50 White Blood Count 11.7 TH/MM3 Red Blood Count 3.85 MIL/MM3 Hemoglobin 11.6 GM/DL Hematocrit 35.4 % Mean Corpuscular Volume 92.1 FL Mean Corpuscular Hemoglobin 30.2 PG Mean Corpuscular Hemoglobin 32.8 % Concent Red Cell Distribution Width 15.0 % Platelet Count 355 TH/MM3 Mean Platelet Volume 7.2 FL Neutrophils (%) (Auto) 88.3 % Lymphocytes (%) (Auto) 9.2 % Monocytes (%) (Auto) 2.4 % Eosinophils (%) (Auto) 0.0 % Basophils (%) (Auto) 0.1 % Neutrophils # (Auto) 10.3 TH/MM3 Lymphocytes # (Auto) 1.1 TH/MM3 Monocytes # (Auto) 0.3 TH/MM3 Eosinophils # (Auto) 0.0 TH/MM3 Basophils # (Auto) 0.0 TH/MM3 CBC Comment DIFF FINAL Differential Comment Sodium Level 136 MEQ/L Potassium Level 3.8 MEQ/L Chloride Level 102 MEQ/L Carbon Dioxide Level 22.3 MEQ/L Anion Gap 12 MEQ/L Blood Urea Nitrogen 67 MG/DL Creatinine 6.73 MG/DL Estimat Glomerular Filtration 8 ML/MIN Rate Random Glucose 111 MG/DL Calcium Level 9.0 MG/DL Phosphorus Level 5.2 MG/DL Magnesium Level 1.9 MG/DL Total Bilirubin 0.3 MG/DL Aspartate Amino Transf 19 U/L (AST/SGOT) Alanine Aminotransferase 11 U/L (ALT/SGPT) Alkaline Phosphatase 89 U/L Total Protein 8.1 GM/DL Albumin 2.8 GM/DL [facility] Medical Decision Making Medical Screen Exam Complete: Yes Emergency Medical Condition: Yes Medical Record Reviewed: Yes Differential Diagnosis Electrolyte imbalance, fluid overload, ESRD, arrhythmia Narrative Course CBC & BMP Diagram 06/23/16 17:50 EKG: sinus, rate 58, no hyperkalemia morphology, normal axis Admission to [facility]. D/w Monique Ivey. Dr Rizvi evaluated in ER and has helped arrange for PD. Diagnosis Primary Impression: ESRD (end stage renal disease) Additional Impressions: Peritoneal dialysis status Arthritis of carpometacarpal (CMC) joint of left thumb Admitting Information Admitting Physician Requests: Observation Asad Call MD June 23, 2016 17:45
[2016-06-23 18:10] LABS: AUTOMATED NEUTROPHIL # 10.3 TH/MM3 (1.8-7.7); BASOPHIL % 0.1 % (0.0-2.0); HEMATOCRIT 35.4 % (39.0-51.0); HEMO FLAGS DIFF FINAL; LYMPH % 9.2 % (9.0-44.0); LYMPHOCYTE # 1.1 TH/MM3 (1.0-4.8); MEAN CELL VOLUME 92.1 FL (80.0-100.0); MEAN CORPUSCULAR HEMOGLOBIN 30.2 PG (27.0-34.0); MEAN CORPUSCULAR HGB CONC 32.8 % (32.0-36.0); MONO % 2.4 % (0.0-8.0); NEUT % 88.3 % (16.0-70.0); PLATELET COUNT 355 TH/MM3 (150-450); RED BLOOD COUNT 3.85 MIL/MM3 (4.50-5.90); WHITE BLOOD COUNT 11.7 TH/MM3 (4.0-11.0)
--- NOTE | 2016-06-23 18:25 | PD.CONS ---
HPI Service Nephrology Consult Requested By Dr. Call Reason for Consult End-stage renal disease on peritoneal dialysis Primary Care Physician Wendy Luciano M.D. History of Present Illness Patient is a 75-year-old male with history of hypertension, end-stage renal disease the who state that he woke up several days ago and had felt a crack in his left hand at first he thought he fractured his hand it was swollen all the way up to elbow, he had a x-ray done in the emergency and he was told he has gout he was taking prednisone for gouty arthritis however his hand was wrapped and he could not use it the it was very painful and he has missed his peritoneal dialysis for the last 3 days, patient denies any chest pain, shortness of breath any nausea or vomiting. Review of Systems Constitutional: COMPLAINS OF: Fatigue Musculoskeletal: COMPLAINS OF: Joint pain, Muscle aches, Stiffness, Joint Swelling Past Family Social History Allergies: Coded Allergies: No Known Allergies (Verified , 06/23/16) Uncoded Allergies: NKDA (Allergy, Unknown, 10/20/02) Past Medical History History of hypertension End-stage renal disease Anemia Secondary hyperparathyroidism Coronary artery disease Hyperlipidemia History of bladder cancer Past Surgical History Tenckhoff catheter Coronary artery disease status post CABG Reported Medications Reported Meds & Active Scripts Active Prednisone 20 Mg Tab 20 Mg PO BID Reported [Liquid Protein] 5 Mg PO MWF Pantoprazole (Pantoprazole Sodium) 40 Mg Tab 40 Mg PO DAILY Ambien (Zolpidem Tartrate) 5 Mg Tab 5 Mg PO HS PRN Aspirin EC (Aspirin) 81 Mg Tabdr 81 Mg PO DAILY Vitamin C (Ascorbic Acid) 500 Mg Tab 500 Mg PO DAILY Calcium Acetate (Phosphate Binder) 667 Mg Tab 667 Mg PO TID Calcitriol 0.25 Mcg Cap 0.25 Mcg PO DAILY Lovastatin 40 Mg Tab 40 Mg PO DAILY Fosinopril (Fosinopril Sodium) 10 Mg Tab 10 Mg PO TID Family History Noncontributory Social History Denies smoking or alcohol use Physical Exam Vital Signs Vital Signs Date Time Temp Pulse Resp B/P Pulse Ox O2 Delivery O2 Flow Rate FiO2 06/23/16 17:18 97.9 80 16 166/90 99 Physical Exam GENERAL: Well-nourished, well-developed patient. SKIN: Warm and dry. HEAD: Normocephalic. EYES: No scleral icterus. No injection or drainage. NECK: Supple, trachea midline. No JVD or lymphadenopathy. CARDIOVASCULAR: Regular rate and rhythm without murmurs, gallops, or rubs. RESPIRATORY: Breath sounds equal bilaterally. No accessory muscle use. GASTROINTESTINAL: Abdomen soft, non-tender, nondistended. There is a peritoneal dialysis catheter in place EXTREMITIES: No cyanosis, left hand has a dressing and edema. NEUROLOGICAL: Awake, alert, and oriented x 3. Non-focal. Laboratory Laboratory Tests Test 06/23/16 17:50 White Blood Count 11.7 Red Blood Count 3.85 Hemoglobin 11.6 Hematocrit 35.4 Mean Corpuscular Volume 92.1 Mean Corpuscular Hemoglobin 30.2 Mean Corpuscular Hemoglobin 32.8 Concent Red Cell Distribution Width 15.0 Platelet Count 355 Mean Platelet Volume 7.2 Neutrophils (%) (Auto) 88.3 Lymphocytes (%) (Auto) 9.2 Monocytes (%) (Auto) 2.4 Eosinophils (%) (Auto) 0.0 Basophils (%) (Auto) 0.1 Neutrophils # (Auto) 10.3 Lymphocytes # (Auto) 1.1 Monocytes # (Auto) 0.3 Eosinophils # (Auto) 0.0 Basophils # (Auto) 0.0 CBC Comment DIFF FINAL Differential Comment Result Diagram: 06/23/16 1750 Assessment and Plan Problem List: (1) ESRD (end stage renal disease) Plan: Patient is going to get his peritoneal dialysis tonight continue to monitor and he will need a permacath and hemodialysis conversion as he cannot do his peritoneal dialysis and has a disability with left hand being swollen and wrapped This is temporary and he was told that the procedure can be done on Saturday meanwhile we will continue with peritoneal dialysis in the hospital (2) Peritoneal dialysis status Plan: Continue PD in the hospital over the weekend (3) Arthritis of carpometacarpal (CMC) joint of left thumb Plan: He was given some prednisone recently Lamin Rizvi MD June 23, 2016 18:25
[2016-06-23] MEDS ORDERED: SODIUM CHLORIDE 0.9% FLUSH 10 ML FLUSH IV FLUSH PRN ×2 (18:30→18:45)
[2016-06-23] MEDS ORDERED: HEPARIN SODIUM - IV 10,000 UNITS/10 ML VIAL XX PRN (18:30)
[2016-06-23 18:32] LABS: ALT (GPT) 11 U/L (12-78); ANION GAP 12 MEQ/L (5-15); AST (GOT) 19 U/L (15-37); BICARBONATE 22.3 MEQ/L (21.0-32.0); BLOOD UREA NITROGEN 67 MG/DL (7-18); CHLORIDE 102 MEQ/L (98-107); GLOMERULAR FILTRATION RATE 8 ML/MIN (>89); MAGNESIUM 1.9 MG/DL (1.5-2.5); POTASSIUM 3.8 MEQ/L (3.5-5.1); SODIUM (NA) 136 MEQ/L (136-145)
[2016-06-23 18:34] LABS: ALKALINE PHOSPHATASE 89 U/L (45-117); TOTAL BILIRUBIN ADULT 0.3 MG/DL (0.2-1.0)
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
[2016-06-23] MEDS ORDERED: ACETAMINOPHEN 325 MG TAB PO PRN (18:45)
[2016-06-23] MEDS ORDERED: NALOXONE HCL 0.4 MG/ML AMP IV PRN (18:45)
[2016-06-23] MEDS ORDERED: ONDANSETRON HCL 4 MG/2 ML VIAL IVP PRN (18:45)
[2016-06-23 20:00] VITALS: BP 150/73; PULSE 65; RESP 18; TEMP 97.9; O2SAT 99
[2016-06-23] MEDS: SODIUM CHLORIDE 0.9% FLUSH 10 ML FLUSH IV FLUSH SCH (20:04)
[2016-06-23] MEDS: predniSONE 20 MG TAB PO SCH (20:04)
[2016-06-23 20:52] VITALS: PULSE 73
[2016-06-23] MEDS ORDERED: predniSONE 20 MG TAB PO SCH (21:00)
[2016-06-24] VITALS (7 sets, daily range): BP systolic 112–150; BP diastolic 58–80; PULSE 61–93; RESP 18–20; TEMP 96.4–98.3; O2SAT 95–98
[2016-06-24 09:06] LABS: BICARBONATE 27.9 MEQ/L (21.0-32.0); POTASSIUM 3.4 MEQ/L (3.5-5.1)
[2016-06-24] MEDS: CALCIUM ACETATE 667 MG CAP PO SCH ×3 (09:07→17:34)
[2016-06-24] MEDS: PANTOPRAZOLE SOD 40 MG DELAYED RELEASE TAB PO SCH (09:07)
[2016-06-24] MEDS: PRAVASTATIN SOD 40 MG TAB PO SCH (09:07)
[2016-06-24] MEDS: ASCORBIC ACID 500 MG TAB PO SCH (09:07)
[2016-06-24] MEDS: CALCITRIOL 0.25 MCG CAP PO SCH (09:07)
[2016-06-24] MEDS: ASPIRIN EC 81 MG TABEC PO SCH (09:08)
[2016-06-24] MEDS: LISINOPRIL 10 MG TAB PO SCH ×3 (09:08→17:34)
[2016-06-24] MEDS: predniSONE 20 MG TAB PO SCH ×2 (09:08→20:47)
[2016-06-24] MEDS: SODIUM CHLORIDE 0.9% FLUSH 10 ML FLUSH IV FLUSH SCH ×2 (09:11→20:48)
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
[2016-06-24] MEDS: ALPRAZolam 0.25 MG TAB PO PRN ×2 (12:13→23:57)
--- NOTE | 2016-06-24 14:56 | HHI.NPPN ---
Subjective History of Present Illness 75 year old with swollen Lt hand ESRD on PD Review of Systems Musculoskeletal MS: Pain/Stiffness Objective Data Data 06/23/16 06/24/16 19:00 07:00 # Voids 1 # Bowel Movements 1 Vital Signs Date Time Temp Pulse Resp B/P Pulse Ox O2 Delivery O2 Flow Rate FiO2 06/24/16 12:00 96.4 81 20 112/59 97 06/24/16 08:00 98.0 68 20 150/73 97 06/24/16 08:00 78 06/24/16 08:00 97 Room Air 06/24/16 04:00 98.0 89 18 124/80 96 06/24/16 04:00 Room Air 06/24/16 00:00 98.3 93 18 127/76 97 06/24/16 00:00 Room Air 06/23/16 20:52 73 06/23/16 20:00 Room Air 06/23/16 20:00 97.9 65 18 150/73 99 06/23/16 17:18 97.9 80 16 166/90 99 -: 06/23/16 1750 06/24/16 0734 Physical Exam General Appearance: Well Developed, Well Nourished Neck Neck Exam: Neck Supple Pulmonary Resp Exam: Clear Bilaterally, Breath Sounds Equal Cardiology CV Exam: Regular, Normal Sinus Rhythm Gastrointestinal/Abdomen GI Exam: Soft, Non-Tender, Bowel Sounds Present Genitourinary Exam: Clear Urine Extremeties Extremeties Remarks Lt hand wrapped in cast Assessment/Plan Problem List: (1) ESRD (end stage renal disease) Plan: Patient on peritoneal dialysis PermCath in am as hand swollen replace K cant do it at home HD till recover (2) Peritoneal dialysis status Plan: Continue PD in the hospital over the weekend (3) Arthritis of carpometacarpal (CMC) joint of left thumb Plan: He was given some prednisone recently Lamin Rizvi MD June 24, 2016 14:56
--- NOTE | 2016-06-24 15:02 | EKG ---
Date Performed: 06/23/2016 Time Performed: 17:58:05 PTAGE: 75 years EKG: SINUS BRADYCARDIA WITH SINUS ARRHYTHMIA MODERATE INTRAVENTRICULAR CONDUCTION DELAY Since pr evious tracing, no significant change noted BORDERLINE ECG PREVIOUS TRACING : 04/25/2016 01.18 DOCTOR: Lexi Brunson Interpretating Date/Time 06/24/2016 15:00:09
[2016-06-24] MEDS: POTASSIUM CHLORIDE 20 MEQ CONTROLLED RELEASE TAB PO SCH (20:47)
[2016-06-25] VITALS (10 sets, daily range): BP systolic 111–147; BP diastolic 57–73; PULSE 53–77; RESP 16–20; TEMP 95.4–98; O2SAT 93–100
[2016-06-25 06:17] LABS: AUTOMATED NEUTROPHIL # 8.8 TH/MM3 (1.8-7.7); BASOPHIL % 0.1 % (0.0-2.0); HEMATOCRIT 32.6 % (39.0-51.0); HEMO FLAGS DIFF FINAL; LYMPH % 9.8 % (9.0-44.0); MEAN CELL VOLUME 90.9 FL (80.0-100.0); MEAN CORPUSCULAR HEMOGLOBIN 30.8 PG (27.0-34.0); MEAN CORPUSCULAR HGB CONC 33.9 % (32.0-36.0); MONO % 2.7 % (0.0-8.0); NEUT % 87.4 % (16.0-70.0); PLATELET COUNT 369 TH/MM3 (150-450); RED BLOOD COUNT 3.59 MIL/MM3 (4.50-5.90); RED CELL DISTRIBUTION WIDTH 15.5 % (11.6-17.2); WHITE BLOOD COUNT 10.1 TH/MM3 (4.0-11.0)
[2016-06-25 06:40] LABS: INTERNATIONAL NORMALIZED RATIO 1.1 RATIO; PROTHROMBIN TIME - PATIENT 11.9 SEC (9.8-11.6)
[2016-06-25 06:41] LABS: BICARBONATE 24.3 MEQ/L (21.0-32.0); POTASSIUM 3.8 MEQ/L (3.5-5.1)
[2016-06-25] MEDS: LISINOPRIL 10 MG TAB PO SCH ×3 (09:00→18:00)
[2016-06-25] MEDS: SODIUM CHLORIDE 0.9% FLUSH 10 ML FLUSH IV FLUSH SCH ×2 (09:00→20:55)
[2016-06-25] MEDS: CALCIUM ACETATE 667 MG CAP PO SCH ×3 (09:00→18:00)
[2016-06-25] MEDS: POTASSIUM CHLORIDE 20 MEQ CONTROLLED RELEASE TAB PO SCH ×2 (09:00→20:54)
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
--- NOTE | 2016-06-25 10:55 | HHI.NPPN ---
Subjective History of Present Illness 75 year old with swollen Lt hand ESRD on PD Additional Remarks patient is depressed, crying states " lost my , my dogs, change insurance, cant take care anymore" Review of Systems Musculoskeletal MS: Pain/Stiffness Objective Data Data 06/24/16 06/25/16 19:00 07:00 Intake Total 480 ml Output Total 661 ml Balance -661 ml 480 ml Intake Oral 480 ml Output Peritoneal Fluid 661 ml # Voids 2 Vital Signs Date Time Temp Pulse Resp B/P Pulse Ox O2 Delivery O2 Flow Rate FiO2 06/25/16 08:00 95.4 61 16 118/71 98 06/25/16 07:15 Room Air 06/25/16 04:00 Room Air 06/25/16 04:00 98.0 59 20 116/73 95 06/25/16 00:00 Room Air 06/25/16 00:00 97.6 71 20 113/62 96 06/24/16 20:00 Room Air 06/24/16 20:00 97.3 73 20 115/62 98 06/24/16 19:52 61 06/24/16 16:00 97.9 64 20 112/58 95 06/24/16 12:00 96.4 81 20 112/59 97 -: 06/25/16 0540 06/25/16 0600 Physical Exam General Appearance: Well Developed, Well Nourished Neck Neck Exam: Neck Supple Pulmonary Resp Exam: Clear Bilaterally, Breath Sounds Equal Cardiology CV Exam: Regular, Normal Sinus Rhythm Gastrointestinal/Abdomen GI Exam: Soft, Non-Tender, Bowel Sounds Present Genitourinary Exam: Clear Urine Extremeties Extremeties Remarks Lt hand wrapped in cast Assessment/Plan Problem List: (1) ESRD (end stage renal disease) Plan: Patient on peritoneal dialysis PermCath in am as hand swollen replace K cant do it at home HD till recover arrangements requested at [place] [facility] try Prozac 20 mg daily as depressed (2) Peritoneal dialysis status Plan: Continue PD in the hospital over the weekend (3) Arthritis of carpometacarpal (CMC) joint of left thumb Plan: He was given some prednisone recently Lamin Rizvi MD June 25, 2016 10:55
[2016-06-25] MEDS ORDERED: FLUoxetine HCL 20 MG CAP PO ONE (11:30)
[2016-06-25] MEDS: predniSONE 20 MG TAB PO SCH ×2 (13:49→20:54)
[2016-06-25] MEDS: VANCOMYCIN INJ 1,000 MG in SODIUM CHLOR 0.9% 250 ML INJ 250 ML IV SCH ×2 (14:47→18:49)
[2016-06-25] MEDS ORDERED: LIDOCAINE 1%/EPINEPHrine 1:100,000 SOLN 20 ML VIAL ONE (15:45)
[2016-06-25] MEDS ORDERED: fentaNYL CITRATE 250 MCG/5 ML AMP ONE (16:06)
[2016-06-25] MEDS ORDERED: MIDAZOLAM HCL 5 MG/5 ML VIAL ONE (16:06)
[2016-06-25] MEDS: ceFAZolin 2 GM PREMIX 50 ML IV SCH ×2 (16:31→18:50)
--- NOTE | 2016-06-25 16:43 | PD.RAD ---
Post Procedure Progress Note Pre Procedure Diagnosis: (1) ESRD (end stage renal disease) Post Procedure Diagnosis: (1) ESRD (end stage renal disease) Procedure Date: June 25, 2016 Supervising Radiologist: Francisco Huffman JR Proceduralist/Assist: Ellen Dixon, RT(R)(CV), Asael Hallman RT(R)() Anesthesia: Conscious Sedation Plan of Activity Patient to Unit: [facility]OP[facility] Patient Condition: Good See PACS Report for procedural detail/treatment Central Venous Access Device Procedure 1 Right Internal Jugular Hemodialysis Catheter Tunneled Placement dual lumen Polish: 15 Findings: Catheter in good position and functions well. OK to use Plan Remove sutures in 2-3 weeks Jr. Nathanael,Francisco Perez MD June 25, 2016 16:43
[2016-06-25] MEDS ORDERED: HEPARIN SODIUM - IV 2,000 UNITS/2 ML VIAL IV FLUSH PRN (16:45)
[2016-06-25] MEDS ORDERED: SODIUM CHLORIDE 0.9% FLUSH 10 ML FLUSH IVF PRN (16:45)
[2016-06-25] MEDS: CALCITRIOL 0.25 MCG CAP PO SCH (18:47)
[2016-06-25] MEDS: PANTOPRAZOLE SOD 40 MG DELAYED RELEASE TAB PO SCH (18:48)
[2016-06-25] MEDS: PRAVASTATIN SOD 40 MG TAB PO SCH (18:48)
[2016-06-25] MEDS: ASCORBIC ACID 500 MG TAB PO SCH (18:50)
[2016-06-25] MEDS: ASPIRIN EC 81 MG TABEC PO SCH (18:50)
[2016-06-25] MEDS: ALPRAZolam 0.25 MG TAB PO PRN (20:54)
[2016-06-26] VITALS (8 sets, daily range): BP systolic 113–158; BP diastolic 59–99; PULSE 57–70; RESP 17–18; TEMP 97.3–98.1; O2SAT 94–99
[2016-06-26 06:25] LABS: BICARBONATE 23.4 MEQ/L (21.0-32.0); POTASSIUM 4.2 MEQ/L (3.5-5.1)
[2016-06-26] MEDS: CALCITRIOL 0.25 MCG CAP PO SCH (08:23)
[2016-06-26] MEDS: ASCORBIC ACID 500 MG TAB PO SCH (08:23)
[2016-06-26] MEDS: predniSONE 20 MG TAB PO SCH (08:23)
[2016-06-26] MEDS: POTASSIUM CHLORIDE 20 MEQ CONTROLLED RELEASE TAB PO SCH ×2 (08:24→21:59)
[2016-06-26] MEDS: CALCIUM ACETATE 667 MG CAP PO SCH ×3 (08:24→16:56)
[2016-06-26] MEDS: LISINOPRIL 10 MG TAB PO SCH ×3 (08:24→16:56)
[2016-06-26] MEDS: PANTOPRAZOLE SOD 40 MG DELAYED RELEASE TAB PO SCH (08:24)
[2016-06-26] MEDS: FLUoxetine HCL 20 MG CAP PO SCH (08:25)
[2016-06-26] MEDS: PRAVASTATIN SOD 40 MG TAB PO SCH (08:25)
[2016-06-26] MEDS: ASPIRIN EC 81 MG TABEC PO SCH (08:25)
[2016-06-26] MEDS: SODIUM CHLORIDE 0.9% FLUSH 10 ML FLUSH IV FLUSH SCH ×2 (08:26→21:58)
[2016-06-26] MEDS ORDERED: SODIUM CHLOR 0.9% 1000 ML INJ 1,000 ML IV PRN ×3 (09:04)
[2016-06-26] MEDS ORDERED: SODIUM CHLORIDE 0.9% FLUSH 10 ML FLUSH IV FLUSH PRN (09:15)
[2016-06-26] MEDS ORDERED: MANNITOL 12.5 GM/50 ML VIAL IV PRN (09:15)
[2016-06-26] MEDS ORDERED: ALBUMIN HUMAN 25% 25 GM/100 ML BAGP IV PRN (09:15)
[2016-06-26] MEDS ORDERED: HEPARIN SODIUM - IV 10,000 UNITS/10 ML VIAL PRN (09:15)
[2016-06-26] MEDS ORDERED: HEPARIN SODIUM - IV 10,000 UNITS/10 ML VIAL IVF PRN (09:15)
[2016-06-26] MEDS ORDERED: GELATIN 12 MM/7 MM FOAM TOP PRN (09:15)
[2016-06-26] MEDS ORDERED: cloNIDine HCL 0.1 MG TAB PO PRN (09:15)
[2016-06-26] MEDS ORDERED: diphenhydrAMINE HCL 25 MG CAP PO PRN (09:15)
[2016-06-26] MEDS ORDERED: EPOETIN ALFA 2,000 UNITS/ML VIAL IV PRN (09:15)
[2016-06-26] MEDS ORDERED: NITROGLYCERIN 0.4 MG SL 25 TABS/BTL SL PRN (09:15)
[2016-06-26] MEDS ORDERED: ACETAMINOPHEN 325 MG TAB PO PRN (09:15)
[2016-06-26] MEDS ORDERED: ONDANSETRON HCL 4 MG/2 ML VIAL IV PRN (09:15)
[2016-06-26] MEDS ORDERED: GENTAMICIN SULFATE (DIALYSIS USE ONLY) 20 MG/2 ML VIAL IV PRN (09:15)
--- NOTE | 2016-06-26 09:20 | RADRPT ---
EXAM DATE/TIME: 06/25/2016 16:12 [place] COMPARISON: No previous studies available for comparison. INDICATIONS : Patient on peritoneal dialysis. Converted to hemodialysis. Now needs permcath. MEDICAL HISTORY : 1. ESRD 2. HTN 3. CAD 4. High cholesterol SURGICAL HISTORY : 1. Tenkhoff cath 2. CABG ENCOUNTER: Initial ACUITY: 3 days PAIN SCORE: 0/10 FLUORO TIME: 0.5 minutes IMAGE SERIES: 1 SEDATION TIME: 30 minutes ACCESS: Right internal jugular vein SEDATION: 1.) 1.5 mg midazolam (Versed) IV 2.) 75 mcg fentanyl (Sublimaze) IV Prophylactic antibiotics were administered with appropriate pre-procedure timing. Vancomycin within 2 hours of procedure, Ancef (or alternative) within 1 hour of procedure. DEVICE: 1. 15 Bangladeshi dual lumen 23 cm Daigle II Plus catheter PROCEDURE : 1. Ultrasound-guided venipuncture. 2. PermaCath placement. 3. Conscious sedation with continuous EKG and oximetry monitoring. The risks, benefits and alternatives to the procedure were explained and verbal and written consent w as obtained. The site was prepped in sterile fashion. Full sterile technique was used, including ca p, mask, sterile gloves and gown and a large sterile sheet. Hand hygiene and 2% chlorhexidine and/or betadine/alcohol prep was utilized per protocol for cutaneous antisepsis. The skin and subcutaneous tissues were infiltrated with local anesthetic solution. With ultrasound and fluoroscopic guidance a dermatotomy was created over the prescribed vein. A micr opuncture set was used to access the targeted vein and serial dilatation was performed to accept the prescribed length catheter. A subcutaneous tunnel was created in a retrograde fashion the catheter w as pulled through the tunnel. The catheter was flushed and assembled and locked with heparin. The c atheter was sutured in place. Conscious sedation was performed with the prescribed dosages and duration as above in the presence of an independent trained radiology nurse to assist in the monitoring of the patient. EKG and oximetry remained stable throughout the procedure. The patient tolerated the procedure well and there were n o complications. The patient was sent to post anesthesia recovery in stable condition. CONCLUSION: Uncomplicated PermaCath placement as above. Francisco Huffman Jr., MD on June 26, 2016 at 9:17 Board Certified Radiologist. This report was verified electronically.
--- NOTE | 2016-06-26 12:02 | HHI.PR ---
Subjective Remarks Resting in bed Talkative alert cooperative Plan for Hemo dialysis today, first time Afebrile BM X1 last 24 hrs Objective Objective Results - Vital Signs Date Time Temp Pulse Resp B/P Pulse Ox O2 Delivery O2 Flow Rate FiO2 06/26/16 08:04 97.4 64 17 131/66 97 06/26/16 04:00 97.3 57 18 158/70 94 06/26/16 00:00 97.4 59 18 122/59 95 06/26/16 00:00 Room Air 06/25/16 20:26 67 06/25/16 20:00 Room Air 06/25/16 20:00 97.5 61 18 147/65 100 06/25/16 18:00 54 18 126/63 96 06/25/16 17:30 55 18 122/69 96 06/25/16 17:00 65 18 111/57 93 06/25/16 16:45 97.9 77 18 117/58 93 06/25/16 12:00 97.4 53 20 136/61 97 I/O 06/25/16 06/25/16 06/25/16 06/26/16 06/26/16 06/26/16 07:00 15:00 23:00 07:00 15:00 23:00 Intake Total 0 ml 240 ml 480 ml Output Total 1233 ml Balance -1233 ml 240 ml 480 ml Intake Oral 240 ml 480 ml IV Total 0 ml Output Peritoneal Fluid 1233 ml # Voids 1 1 # Bowel Movements 1 0 Result Diagram: 06/25/16 0540 06/26/16 0505 ROS General: Fatigue (debility), Weakness (generalized), Other (10 point ROS done positives noted systems negative are unremarkable) Pulmonary: Cough (occasional) /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 He is alert and awake, conversational HEAD: Normocephalic without any lesion or mass noted. Facial features appear symmetric. OROPHARYNGEAL: Oropharynx without erythema or edema. NECK: Supple. No nuchal rigidity or lymphadenopathy. Trachea midline without deviation. CARDIAC: Regular rhythm, regular rate, S1 and S2 are heard. LUNGS: Clear to auscultation bilaterally. No rales or rhonchi noted ABDOMEN: Soft, nontender, no organomegaly or masses. Bowel sounds are heard in all four quadrants. No rebound. No guarding. EXTREMITIES: No edema. Pulses intact. NEUROLOGICAL: Patient mood and affect appropriate. No focal deficit SKIN:Warm and moist, dialysis catheter in place, dressing clean dry and intact Objective Remarks My first hemodialysis is today A/P Assessment and Plan Hospital signs reviewed pulse borderline bradycardia, and 60s. Asymptomatic Labs reviewed, chronic kidney disease, anemia secondary to chronic disease stable End-stage renal disease, planned for hemodialysis management today and Vas-Cath insertion done on 06-26 -Dr. Rizvi has evaluated patient, appreciate plan a care Debility, will have physical therapy eval and treat for recommendations for later this week and discharge planning OT to eval and treat recommendations for DC planning. Patient may be out of bed with assistance Left hand pain, diagnosed with gouty arthritis Splint intact, elevate, less pain noted this morning Continue prednisone 20 mg by mouth twice a day -Patient is to follow up as outpatient with Dr. Lee Hypertension, elevated initially but controlled now Monitor and medical management CAD, prior history of CABG Stable, continue to monitor Anxiety, sleeping poorly -Xanax PRN added SCDs for DVT prophylaxis D/W RN D/W Dr. Mariano, seen on his behalf D/W pt Melissa Elizabeth June 26, 2016 12:01
--- NOTE | 2016-06-26 13:09 | HHI.NPPN ---
Subjective History of Present Illness 75 year old with swollen Lt hand ESRD on PD Additional Remarks patient is better c/p pain at insertion of PermCath Review of Systems Musculoskeletal MS: Pain/Stiffness Objective Data Data 06/25/16 06/26/16 19:00 07:00 Intake Total 0 ml 720 ml Output Total 1233 ml Balance -1233 ml 720 ml Intake Oral 720 ml IV Total 0 ml Output Peritoneal Fluid 1233 ml # Voids 2 # Bowel Movements 1 Vital Signs Date Time Temp Pulse Resp B/P Pulse Ox O2 Delivery O2 Flow Rate FiO2 06/26/16 08:15 Room Air 06/26/16 08:04 97.4 64 17 131/66 97 06/26/16 04:00 97.3 57 18 158/70 94 06/26/16 00:00 97.4 59 18 122/59 95 06/26/16 00:00 Room Air 06/25/16 20:26 67 06/25/16 20:00 Room Air 06/25/16 20:00 97.5 61 18 147/65 100 06/25/16 18:00 54 18 126/63 96 06/25/16 17:30 55 18 122/69 96 06/25/16 17:00 65 18 111/57 93 06/25/16 16:45 97.9 77 18 117/58 93 -: 06/25/16 0540 06/26/16 0505 Physical Exam General Appearance: Well Developed, Well Nourished Neck Neck Exam: Neck Supple Pulmonary Resp Exam: Clear Bilaterally, Breath Sounds Equal Cardiology CV Exam: Regular, Normal Sinus Rhythm Gastrointestinal/Abdomen GI Exam: Soft, Non-Tender, Bowel Sounds Present Genitourinary Exam: Clear Urine Extremeties Extremeties Remarks Lt hand wrapped in cast Assessment/Plan Problem List: (1) ESRD (end stage renal disease) Plan: Patient on peritoneal dialysis PermCath in place left hand swelling improved orders for HD given social services specialist to arrange HD HD till recover arrangements requested at [place] [facility] on Prozac 20 mg daily as depressed (2) Peritoneal dialysis status Plan: convert to HD (3) Arthritis of carpometacarpal (CMC) joint of left thumb Plan: He was given some prednisone recently Lamin Rizvi MD June 26, 2016 13:09
[2016-06-27] VITALS: BP_SYST 121; BP_SYST 149; BP_DIAS 56; BP_DIAS 77; PULSE 56; RESP 18; TEMP 97.6; O2SAT 92; O2SAT 96
[2016-06-27 04:00] VITALS: BP 146/80; PULSE 59; RESP 18; TEMP 97.2; O2SAT 96
[2016-06-27 08:00] VITALS: BP 140/81; PULSE 65; RESP 18; TEMP 97.7; O2SAT 98
[2016-06-27] MEDS: ASCORBIC ACID 500 MG TAB PO SCH (09:17)
[2016-06-27] MEDS: PANTOPRAZOLE SOD 40 MG DELAYED RELEASE TAB PO SCH (09:17)
[2016-06-27] MEDS: PRAVASTATIN SOD 40 MG TAB PO SCH (09:17)
[2016-06-27] MEDS: CALCITRIOL 0.25 MCG CAP PO SCH (09:17)
[2016-06-27] MEDS: CALCIUM ACETATE 667 MG CAP PO SCH (09:17)
[2016-06-27] MEDS: FLUoxetine HCL 20 MG CAP PO SCH (09:17)
[2016-06-27] MEDS: POTASSIUM CHLORIDE 20 MEQ CONTROLLED RELEASE TAB PO SCH (09:18)
[2016-06-27] MEDS: LISINOPRIL 10 MG TAB PO SCH (09:18)
[2016-06-27] MEDS: SODIUM CHLORIDE 0.9% FLUSH 10 ML FLUSH IV FLUSH SCH (09:18)
[2016-06-27] MEDS: ASPIRIN EC 81 MG TABEC PO SCH (09:18)
--- NOTE | 2016-06-27 10:10 | HHI.FF ---
Face to Face Verification Diagnosis: (1) ESRD (end stage renal disease) (2) HTN (hypertension) (3) Hx of syncope (4) Injury of left lower arm (5) Hemodialysis patient Physical Therapy Order: Evaluate and Treat, Improve ambulation, Strength and gait training Occupational Therapy Order: Evaluate and Treat, Improve ADL, Gross motor coordination, Fine motor coordination Home Health Nursing Order: Wound care and dressing changes I have seen patient Esdras Carcamo on 06/27/16. My clinical findings support the need for the requested home health care services because: Ltd mobility - disease progression Deconditioned w/ increased weakness Limited ability to care for self High risk of falls I certify that my clinical findings support that this patient is homebound because: Impaired cognitive ability/safety Melissa Elizabeth June 27, 2016 10:10
--- NOTE | 2016-06-27 10:19 | HHI.PR ---
Subjective Remarks Resting in bed Talkative alert cooperative lutheran family in, Afebrile BM HD yesterday, tolerated well (Melissa Elizabeth) Objective Objective Results - Vital Signs Date Time Temp Pulse Resp B/P Pulse Ox O2 Delivery O2 Flow Rate FiO2 06/27/16 08:00 97.7 65 18 140/81 98 06/27/16 04:00 97.2 59 18 146/80 96 06/27/16 00:00 97.6 56 18 149/77 96 06/26/16 22:05 Room Air 06/26/16 20:17 65 06/26/16 20:00 97.3 62 18 147/80 95 06/26/16 17:26 99 21 06/26/16 16:04 98.1 68 18 118/68 99 06/26/16 12:03 98.0 70 17 113/99 99 I/O 06/26/16 06/26/16 06/26/16 06/27/16 06/27/16 06/27/16 07:00 15:00 23:00 07:00 15:00 23:00 Intake Total 480 ml 362 ml 480 ml 240 ml Output Total 2000 ml Balance 480 ml 362 ml -1520 ml 240 ml Intake Oral 480 ml 360 ml 480 ml 240 ml IV Total 2 ml Hemodialysis 2000 ml # Voids 1 4 1 1 # Bowel Movements 0 0 0 0 (Melissa Elizabeth) Result Diagram: 06/25/16 0540 06/26/16 0505 ROS General: Weakness (general lt. arm, improving mobility), Other (10 point ROS done, positives noted, bowel regimen.) GI: BM, Other (ESRD, on HD now) Neuro/MS: Other (lt. arm and hand injury) (Melissa Elizabeth) Physical Exam Physical Exam PHYSICAL EXAMINATION GENERAL: This is a slim, well-developed, white male who appears to be in no acute distress. He is alert and awake, smiling HEAD: Normocephalic without any lesion or mass noted. Facial features appear symmetric. OROPHARYNGEAL: Oropharynx without erythema or edema. NECK: Supple. Trachea midline without deviation. CARDIAC: Regular rhythm, regular rate, S1 and S2 are heard LUNGS: Clear to auscultation bilaterally. no wheeze, no rhonchi ABDOMEN: Soft, nontender, no organomegaly or masses. Bowel sounds are heard in all four quadrants. No rebound. No guarding. EXTREMITIES: [] edema. Pulses equal bilateral. [] cyanosis. NEUROLOGICAL: Patient mood and affect appropriate. No focal deficit SKIN:Warm and moist, new dialysis catheter in, dressing CDI Objective Remarks Im going home I hope (Melissa Elizabeth) A/P Assessment and Plan Hospital signs reviewed normal trends Labs reviewed, chronic kidney disease, anemia secondary to chronic disease stable End-stage renal disease, planned for hemodialysis management. Vas-Cath insertion done on 06-26 -Dr. Rizvi has evaluated patient, appreciate plan a care Will need 3X week Dialysis as OP Debility, will have physical therapy eval and treat for recommendations for later this week and discharge planning PT, OT to eval and treat recommendations for DC planning. Patient may be out of bed with assistance. Will add Home health Left hand pain, diagnosed with gouty arthritis Splint intact, elevate, less pain noted this morning -Patient is to follow up as outpatient with Dr. Lee, appt. next Saturday Hypertension, elevated initially but controlled now Monitor and medical management Anxiety, sleeping better, improved -Xanax PRN added SCDs for DVT prophylaxis D/W RN D/W Dr. Mariano, seen on his behalf D/W pt D/W CM, working on DC orders. [facility], Dialysis 3X week, Has supportive lutheran family to drive him Stable to DC today after Dr. Mariano sees (Melissa Elizabeth) Assessment and Plan Patient seen and examined as above Labs and meds reviewed next line discussed with director of consumer affairs okay to discharge Discussed with patient next line plan of care discussed with [facility] Plan to discharge home to be followed by primary care DrLan director of consumer affairs and hand surgeon. Patient understood. Dialysis has been arranged as outpatient patient know where he has to go. (Inocente Mariano MD) Melissa Elizabeth June 27, 2016 10:19 Inocente Mariano MD June 27, 2016 13:12
[2016-06-27 12:00] VITALS: BP 116/62; PULSE 70; RESP 18; TEMP 97.8; O2SAT 96
--- NOTE | 2016-06-27 12:42 | HHI.NPPN ---
Subjective History of Present Illness 75 year old with swollen Lt hand ESRD on PD Additional Remarks patient is better c/p pain at insertion of PermCath Review of Systems Musculoskeletal MS: Pain/Stiffness Objective Data Data 06/26/16 06/27/16 19:00 07:00 Intake Total 362 ml 720 ml Output Total 2000 ml Balance -1638 ml 720 ml Intake Oral 360 ml 720 ml IV Total 2 ml Hemodialysis 2000 ml # Voids 4 2 # Bowel Movements 0 0 Vital Signs Date Time Temp Pulse Resp B/P Pulse Ox O2 Delivery O2 Flow Rate FiO2 06/27/16 08:00 97.7 65 18 140/81 98 06/27/16 04:00 97.2 59 18 146/80 96 06/27/16 00:00 97.6 56 18 149/77 96 06/26/16 22:05 Room Air 06/26/16 20:17 65 06/26/16 20:00 97.3 62 18 147/80 95 06/26/16 17:26 99 21 06/26/16 16:04 98.1 68 18 118/68 99 -: 06/25/16 0540 06/26/16 0505 Physical Exam General Appearance: Well Developed, Well Nourished Neck Neck Exam: Neck Supple Pulmonary Resp Exam: Clear Bilaterally, Breath Sounds Equal Cardiology CV Exam: Regular, Normal Sinus Rhythm Gastrointestinal/Abdomen GI Exam: Soft, Non-Tender, Bowel Sounds Present Genitourinary Exam: Clear Urine Extremeties Extremeties Remarks Lt hand wrapped in cast Assessment/Plan Problem List: (1) ESRD (end stage renal disease) Plan: Patient off peritoneal dialysis due to hand issue PermCath in place left hand swelling improved [place] [facility] [place] 20 mg daily as depressed (2) Peritoneal dialysis status Plan: converted to HD (3) Arthritis of carpometacarpal (CMC) joint of left thumb Plan: He was given some prednisone recently Lamin Rizvi MD June 27, 2016 12:42
[2016-06-27 12:55] VITALS: O2SAT 99
[2016-06-27] MEDS ORDERED: POTA20TA5 PO (13:18)
[2016-06-27] MEDS ORDERED: FLUO20CA4 PO (13:18)
--- NOTE | 2016-06-27 17:56 | HHI.DS ---
Discharge Summary Admission Date June 23, 2016 at 18:15 Discharge Date: June 27, 2016 Admitting Diagnosis ESRD (1) Peritoneal dialysis status Diagnosis: Secondary (2) ESRD (end stage renal disease) Diagnosis: Principal (3) Arthritis of carpometacarpal (CMC) joint of left thumb Diagnosis: Principal (4) HTN (hypertension) Diagnosis: Secondary (5) CAD (coronary artery disease) Diagnosis: Secondary (6) Hx of syncope Diagnosis: Secondary Procedures dialysis catheter placement, First hemodialysis completed Brief History This was a 75-year-old male with history of end-stage renal disease on peritoneal dialysis, hypertension, CAD, CABG. Patient presented to the emergency room at the recommendation of his global compensation director Dr. Rizvi. According to the patient, approximately 3 days ago he rolled over on his left hand and felt a crack, he thought he broke his hand therefore he went to urgent care center. He was told he had fracture hand therefore he was referred to the [place] emergency room yesterday. Another x-ray was done and he was found to have gouty arthritis but no fracture. He was started on prednisone and was instructed to follow-up with Dr. Lee. His left arm was put on a splint. CBC/BMP: 06/25/16 0540 06/26/16 0505 Significant Findings Laboratory Tests Test 06/25/16 06/25/16 06/26/16 05:40 06:00 05:05 Red Blood Count 3.59 MIL/MM3 (4.50-5.90) Hemoglobin 11.0 GM/DL (13.0-17.0) Hematocrit 32.6 % (39.0-51.0) Neutrophils (%) (Auto) 87.4 % (16.0-70.0) Neutrophils # (Auto) 8.8 TH/MM3 (1.8-7.7) Prothrombin Time 11.9 SEC (9.8-11.6) Blood Urea Nitrogen 57 MG/DL (7-18) 65 MG/DL (7-18) Creatinine 5.70 MG/DL 6.00 MG/DL (0.60-1.30) (0.60-1.30) Estimat Glomerular Filtration 10 ML/MIN (>89) 9 ML/MIN (>89) Rate Random Glucose 149 MG/DL 139 MG/DL (74-106) (74-106) Calcium Level 8.0 MG/DL 8.2 MG/DL (8.5-10.1) (8.5-10.1) Imaging Last Impressions Catheter Placement X-Ray 06/25/16 0600 Signed Impressions: Service Date/Time: Saturday, June 25, 2016 16:12 - CONCLUSION: Uncomplicated PermaCath placement as above. Francisco Huffman Jr., MD PE at Discharge GENERAL: This is a well-developed, slim elderly male who appears to be in no acute distress. He is alert and awake, conversational HEAD: Normocephalic without any lesion or mass noted. Facial features appear symmetric. OROPHARYNGEAL: Oropharynx without erythema or edema. NECK: Supple. No nuchal rigidity or lymphadenopathy. Trachea midline without deviation. CARDIAC: Regular rhythm, regular rate, S1 and S2 are heard. LUNGS: Clear to auscultation bilaterally. No rales or rhonchi noted ABDOMEN: Soft, nontender, no organomegaly or masses. Bowel sounds are heard in all four quadrants. No rebound. No guarding. EXTREMITIES: No edema. Pulses intact. NEUROLOGICAL: Patient mood and affect appropriate. No focal deficit SKIN:Warm and moist, dialysis catheter in place, dressing clean dry and intact Objective Remarks My first hemodialysis is today Hospital Course In the ER patient notes ,. hasn't been able to do his own peritoneal dialysis for the last [address] Rizvi had evaluated the patient and order for PT to be done today. He plans to order a Vas-Cath to be placed on Saturday. Patient has no complaints at this time other than feeling very anxious as he's had a lot going on the last couple months. He denies any chest pain, shortness of breath. No fever no chills. Indicates he hasn't been taking his blood pressure medications for the last week as he's had insurance changes. Blood pressure 66/90. Laboratory workup was essentially unremarkable other than mild leukocytosis and presence of renal disease. Patient is admitted for further evaluation and treatment. Diagnosis above were what was used to treat patient during his hospital stay this included peritoneal dialysis complications, end-stage renal disease, arthritis of the left thumb and injury, hypertension, coronary artery disease, history of syncope. Vital signs reviewed and monitored every 4 hours for any acute needs .patient had pulse with borderline bradycardia, and 60s. Asymptomatic Labs reviewed, chronic kidney disease, anemia secondary to chronic disease stable Lab data was also monitored daily and as needed per nephrology as well as hospitalist. End-stage renal disease, planned for hemodialysis management today and Vas-Cath insertion done on 06-26 -Dr. Rizvi has evaluated patient, appreciate plan a care Debility, will have physical therapy eval and treat for recommendations for later this week and discharge planning OT to eval and treat recommendations for DC planning. Patient may be out of bed with assistance Left hand pain, diagnosed with gouty arthritis Splint was placed on patient and intact, elevate, less pain noted after first 24 hours. Maintained elevated Continue prednisone 20 mg by mouth twice a day -Patient is to follow up as outpatient with Dr. Lee Hypertension, elevated initially but controlled now Monitor and medical management CAD, prior history of CABG Stable, continue to monitor Anxiety, sleeping poorly -Xanax PRN added SCDs for DVT prophylaxis Patient had port placement and his first hemodialysis on 06-26. He tolerated without any complications and is set up for outpatient dialysis 3 times a week. He will follow up with his nephrology doctor for any labs and any end-stage renal disease needs. Pt Condition on Discharge: Stable Discharge Disposition: Disch w/ Home Health Serv Discharge Instructions DIET: Follow Instructions for: Renal Failure Diet Activities you can perform: Regular-No Restrictions Follow up Referrals: Nephrology - 1 Week PCP Follow-up - 1 Week SNF/[facility]-TERM/ with [facility] New Medications: Fluoxetine (Fluoxetine) 20 Mg Cap 20 MG PO DAILY depression #30 CAP Potassium Chloride Microencaps (Potassium Chloride Microencaps) 20 Meq Tab 20 MEQ PO Q12HR low potassium #60 TAB Continued Medications: Ascorbic Acid (Vitamin C) 500 Mg Tab 500 MG PO DAILY Nutritional Supplement Ref [address] (Aspirin EC) 81 Mg Tabdr 81 MG PO DAILY Ref 0 TAB Calcitriol (Calcitriol) 0.25 Mcg Cap 0.25 MCG PO DAILY Calcium Supplement #30 Ref 0 CAP Calcium Acetate (Phosphate Binder) (Calcium Acetate (Phosphate Binder)) 667 Mg Tab 667 MG PO TID Hyperphosphatemia #90 Ref 0 TAB Fosinopril (Fosinopril) 10 Mg Tab 10 MG PO TID #30 Ref 0 TAB Lovastatin (Lovastatin) 40 Mg Tab 40 MG PO DAILY Cholesterol Management #30 Ref 0 TAB Pantoprazole (Pantoprazole) 40 Mg Tab 40 MG PO DAILY Reflux #30 Ref 0 TAB Zolpidem (Ambien) 5 Mg Tab 5 MG PO HS PRN INSOMNIA Ref 0 TAB ([Liquid Protein]) 5 MG PO MWF Discontinued Medications: Prednisone (Prednisone) 20 Mg Tab 20 MG PO BID #10 TAB Melissa Elizabeth June 27, 2016 17:56
== END 2016-06-27 15:25 | disposition home health service (06) ==
LOC: NEPC 17:14 → NEDA 18:15 → N04A 19:09
PROVIDERS: ADMIT Specialist; ATTEND Specialist
DX: M10.042 Idiopathic gout, left hand (principal); R53.81 Other malaise; I12.0 Hypertensive chronic kidney disease with stage 5 chronic kidney disease or end stage renal disease; N18.6 End stage renal disease; D63.1 Anemia in chronic kidney disease; I25.10 Atherosclerotic heart disease of native coronary artery without angina pectoris; F32.9 Major depressive disorder, single episode, unspecified; K21.9 Gastro-esophageal reflux disease without esophagitis; E78.00 Pure hypercholesterolemia, unspecified; F41.9 Anxiety disorder, unspecified; Z95.1 Presence of aortocoronary bypass graft; Z87.81 Personal history of (healed) traumatic fracture; Z79.82 Long term (current) use of aspirin; Z85.51 Personal history of malignant neoplasm of bladder; Z99.2 Dependence on renal dialysis
CPT/HCPCS: 36558; 76937; 77001; 80048; 80053; 80074; 83735; 84100; 85025; 85610; 93005; 96374; 96375; 97162; 99152; 99153; 99285; C1750; C1769; G0257; G0378; J0690; J1580; J1644; J2250; J2405; J3010; J3370; J7050; J7512; Q4081; 90935; 90945